=== PATIENT | male | born 1960 | race Caucasian/White ===

== ENCOUNTER 2018-07-20 10:40 | Day surgery (SDC) | payer MEDICARE ==
[~2018-07-20] VITALS: Ht 167.6 cm; Wt 94.0 kg
[2018-07-20] MEDS ORDERED: IODIXANOL 320MG/ML 100 ML BOTTLE IV ONE (13:09)
[2018-07-20] MEDS ORDERED: LIDOCAINE HCL 1% 20ML VIAL (Pyxis) INJ ONE (13:09)
[2018-07-20] MEDS ORDERED: ASPI-1159 MT (13:32)
[2018-07-20] MEDS ORDERED: LEVO100T9 MT (13:32)
[2018-07-20] MEDS ORDERED: NIFE60TA64 MT (13:32)
[2018-07-20] MEDS ORDERED: REN800 MT (13:32)
[2018-07-20] MEDS ORDERED: SIMV20TA6 MT (13:32)
[2018-07-20] MEDS ORDERED: INSNPH SUBCUT (13:32)
[2018-07-20] MEDS ORDERED: METO-539 MT (13:32)
[2018-07-20] MEDS ORDERED: ASPIRIN/SOD BICARB/CITRIC ACID 324MG TAB EFF ONE (14:00)
[2018-07-20 14:06] LABS: HEMATOCRIT 33.8 % (42.0-52.0); HEMOGLOBIN 11.1 g/dL (14.0-18.0); MEAN CORPUSCULAR HEMOGLOBIN 30.8 pg (28.0-32.0); MEAN CORPUSCULAR VOLUME 93.5 fL (80.0-94.0); PLATELET 194 x1000/uL (130-400); RED BLOOD CELL COUNT 3.62 mill/uL (4.7-6.1); RED CELL DISTRIBUTION WIDTH 14.9 % (11.6-14.6)
[2018-07-20 14:15] LABS: PARTIAL THROMBOPLASTIN TIME 27.5 sec (23.4-31.0); PROTHROMBIN TIME 10.5 sec (9.1-11.1)
[2018-07-20] MEDS ORDERED: FENTANYL CITRATE/PF 50MCG/ML 2ML VIAL ONE (14:17)
[2018-07-20] MEDS ORDERED: MIDAZOLAM HCL 2 MG/2 ML VIAL ONE (14:17)
[2018-07-20] MEDS ORDERED: ATROPINE SULFATE 1MG/10ML SYR IV PRN (15:00)
[2018-07-20] MEDS ORDERED: ONDANSETRON HCL 4MG/2ML INJ IV PRN (15:00)
[2018-07-20] MEDS ORDERED: MORPHINE SULFATE 4 MG/ML CPJ (NOT FOR IM USE) IV PRN (15:00)
[2018-07-20] MEDS ORDERED: ACETAMINOPHEN 325MG TABLET PO PRN (15:00)
[2018-07-20] MEDS ORDERED: SODIUM POLYSTYRENE SULFONATE 15 G/60 ML BOT PO NR (16:00)
[2018-07-20] MEDS ORDERED: HEPARIN SODIUM 1,000 UNIT/1ML VIAL IV ONE (16:00)
== END 2018-07-20 18:15 | disposition home or self-care (01) ==
LOC: CCL 10:40
PROVIDERS: ATTEND Specialist
DX: I25.10 Atherosclerotic heart disease of native coronary artery without angina pectoris (principal); E03.9 Hypothyroidism, unspecified; E78.00 Pure hypercholesterolemia, unspecified; E11.22 Type 2 diabetes mellitus with diabetic chronic kidney disease; N18.9 Chronic kidney disease, unspecified; Z99.2 Dependence on renal dialysis; Z79.4 Long term (current) use of insulin; Z79.899 Other long term (current) drug therapy; Z89.421 Acquired absence of other right toe(s); Z98.890 Other specified postprocedural states
CPT/HCPCS: 36415; 80048; 82962; 85027; 85610; 85730; 93458; C1769; C1887; C1893; J1644; J2250; J3010; J3490; Q9967

== ENCOUNTER 2018-09-28 08:31 | Inpatient (IN) | payer MEDICARE, MEDICAID ==
[~2018-09-28] VITALS: Ht 170.2 cm; Wt 95.7 kg
[~2018-09-28 08:31] MED LIST: ASPI-1159 MT; INSNPH SUBCUT; LEVO100T9 MT; METO-539 MT; NIFE60TA64 MT; REN800 MT; SIMV20TA6 MT
[2018-09-28 09:15] LABS: HEMOGLOBIN. 11.1 g/dL (14.0-18.0); MEAN CORPUSCULAR HEMOGLOBIN 31.1 pg (28.0-32.0); MEAN CORPUSCULAR VOLUME 95.6 fL (80.0-94.0); RED BLOOD CELL COUNT 3.56 mill/uL (4.7-6.1); RED CELL DISTRIBUTION WIDTH 15.8 % (11.6-14.6)
[2018-09-28] MEDS ORDERED: ASPIRIN 81MG TABLET PO ONE (09:15)
[2018-09-28] MEDS ORDERED: NITROGLYCERIN 0.4MG TABLET SL SL PRN (09:15)
[2018-09-28 09:22] LABS: CHLORIDE 92 mEq/L (98-107)
[2018-09-28 09:26] LABS: ETHANOL BLOOD < 10 mg/dL
[2018-09-28 09:30] LABS: INR 1.2; PROTHROMBIN TIME 12.3 sec (9.6-11.0)
[2018-09-28 09:58] LABS: PLATELET ESTIMATE NORMAL
[2018-09-28 09:59] LABS: MEAN PLATELET VOLUME 10.1 fl (7.4-10.4); PLATELET 205 x1000/uL (130-400)
[2018-09-28 12:00] VITALS: BP 173/79
[2018-09-28 12:37] VITALS: BP 173/79
[2018-09-28] MEDS ORDERED: DOCUSATE SODIUM 100MG CAPSULE PO PRN (13:15)
[2018-09-28] MEDS ORDERED: ACETAMINOPHEN 325MG TABLET PO PRN (13:15)
[2018-09-28] MEDS ORDERED: MAGNESIUM/ALUMINUM HYDROXIDE/SIMETHICONE 30ML UDC PO PRN (13:15)
[2018-09-28] MEDS ORDERED: PIPERACILLIN/TAZ 2.25G PREMIX 50 ML IV SCH (13:15)
[2018-09-28] MEDS ORDERED: DIPHENHYDRAMINE 50MG/ML VIAL IV PRN (13:15)
[2018-09-28] MEDS ORDERED: ONDANSETRON HCL 4MG/2ML INJ IV PRN (13:15)
[2018-09-28] MEDS ORDERED: GUAIFENESIN 200MG/10ML SUGAR FREE UDC PO PRN (13:15)
[2018-09-28] MEDS ORDERED: ACETAMINOPHEN 650MG SUPP PR PRN (13:15)
[2018-09-28] MEDS ORDERED: LORAZEPAM 0.5MG TABLET PO PRN (13:15)
[2018-09-28] MEDS ORDERED: IPRATROPIUM/ALBUTEROL 0.5-3(2.5)MG/3ML NEB INH PRN (13:15)
[2018-09-28] MEDS ORDERED: CLONIDINE 0.1MG TABLET PO PRN (13:15)
[2018-09-28] MEDS ORDERED: DEXTROSE 50% WATER 50ML SYRINGE IV PRN (13:15)
[2018-09-28] MEDS ORDERED: VANCOMYCIN 2,000 MG in DEXT 5% WATER 500 ML IV SCH (15:00)
[2018-09-28 15:16] LABS: CREATINE KINASE 416 IU/L (39-308)
[2018-09-28 15:17] LABS: CREATINE KINASE MB FRACTION 5.8 ng/mL (0.5-3.6)
[2018-09-28 16:00] VITALS: BP 183/89
[2018-09-28] MEDS: AMLODIPINE 5MG TABLET PO SCH (17:00)
[2018-09-28] MEDS: PIPERACILLIN/TAZ 2.25G PREMIX 50 ML IV SCH ×2 (17:14→23:46)
[2018-09-28] MEDS: BLOOD SUGAR DIAGNOSTIC STRIP TEST SCH ×2 (17:38→21:02)
[2018-09-28] MEDS: INSULIN LISPRO 100 UNITS/ML SUBCUT SCH ×2 (17:38→21:05)
[2018-09-28 20:00] VITALS: BP 161/75
[2018-09-28] MEDS: HEPARIN 5000 UNITS/ML VIAL SUBCUT SCH (21:02)
[2018-09-28] MEDS: HYDROCODONE/ACETAMINOPHEN 5/325MG TABLET PO PRN (21:03)
[2018-09-29] VITALS (9 sets, daily range): BP systolic 110–150; BP diastolic 57–80
[2018-09-29] MEDS: PIPERACILLIN/TAZ 2.25G PREMIX 50 ML IV SCH ×3 (05:29→22:04)
[2018-09-29] MEDS: BLOOD SUGAR DIAGNOSTIC STRIP TEST SCH ×4 (05:49→21:00)
[2018-09-29 06:18] LABS: BASOPHILS % 0.8 % (0.0-2.0); EOSINOPHILS % 5.4 % (0.0-5.0); HEMOGLOBIN. 10.3 g/dL (14.0-18.0); LYMPHOCYTES % 20.9 % (20.0-50.0); MEAN CORPUSCULAR HEMOGLOBIN 31.5 pg (28.0-32.0); MEAN PLATELET VOLUME 9.3 fl (7.4-10.4); MONOCYTES % 9.1 % (2.0-8.0); NEUTROPHILS % 63.8 % (40.0-76.0); PLATELET 208 x1000/uL (130-400); RED BLOOD CELL COUNT 3.26 mill/uL (4.7-6.1); RED CELL DISTRIBUTION WIDTH 15.8 % (11.6-14.6)
[2018-09-29 06:27] LABS: CHLORIDE 92 mEq/L (98-107)
[2018-09-29 06:42] LABS: LDL CHOLESTEROL 67 mg/dL (5-100)
[2018-09-29 06:44] LABS: HDL CHOLESTEROL 33 mg/dL (40-59); T4 FREE 0.92 ng/dL (0.76-1.46)
[2018-09-29 07:39] LABS: PHOSPHORUS 8.6 mg/dL (2.5-4.9)
[2018-09-29] MEDS: AMLODIPINE 5MG TABLET PO SCH (08:56)
[2018-09-29] MEDS: ASPIRIN 81MG EC TABLET PO SCH (08:58)
[2018-09-29] MEDS: HEPARIN 5000 UNITS/ML VIAL SUBCUT SCH ×2 (08:58→22:05)
[2018-09-29] MEDS: INSULIN LISPRO 100 UNITS/ML SUBCUT SCH ×4 (09:00→22:24)
[2018-09-29] MEDS: HYDROCODONE/ACETAMINOPHEN 5/325MG TABLET PO PRN (23:33)
[2018-09-30 04:00] VITALS: BP 179/84
[2018-09-30] MEDS: PIPERACILLIN/TAZ 2.25G PREMIX 50 ML IV SCH ×3 (06:00→22:31)
[2018-09-30 06:15] LABS: BASOPHILS % 0.9 % (0.0-2.0); HEMATOCRIT. 31.2 % (42.0-52.0); HEMOGLOBIN. 10.1 g/dL (14.0-18.0); LYMPHOCYTES % 23.7 % (20.0-50.0); MEAN CORPUSCULAR HEMOGLOBIN 30.9 pg (28.0-32.0); MEAN CORPUSCULAR VOLUME 95.4 fL (80.0-94.0); MEAN PLATELET VOLUME 9.3 fl (7.4-10.4); MONOCYTES % 9.4 % (2.0-8.0); PLATELET 206 x1000/uL (130-400); RED BLOOD CELL COUNT 3.27 mill/uL (4.7-6.1); RED CELL DISTRIBUTION WIDTH 15.5 % (11.6-14.6)
[2018-09-30] MEDS: BLOOD SUGAR DIAGNOSTIC STRIP TEST SCH ×4 (06:55→21:00)
[2018-09-30 08:00] VITALS: BP 185/86
[2018-09-30] MEDS: ASPIRIN 81MG EC TABLET PO SCH (08:29)
[2018-09-30] MEDS: AMLODIPINE 5MG TABLET PO SCH (08:29)
[2018-09-30] MEDS: HEPARIN 5000 UNITS/ML VIAL SUBCUT SCH ×2 (08:29→22:29)
[2018-09-30] MEDS: INSULIN LISPRO 100 UNITS/ML SUBCUT SCH ×4 (08:32→21:00)
[2018-09-30] MEDS ORDERED: LOSARTAN POTASSIUM 50 MG TABLET PO SCH (11:00)
[2018-09-30] MEDS ORDERED: CLONIDINE 0.1MG TABLET PO NR (11:00)
[2018-09-30 12:00] VITALS: BP 195/93
[2018-09-30] MEDS ORDERED: METOPROLOL TARTRATE 50MG TABLET PO NR (14:15)
[2018-09-30] MEDS ORDERED: HYDRALAZINE 20MG/ML VIAL IV NR (14:15)
[2018-09-30 16:00] VITALS: BP 151/70
[2018-09-30] MEDS ORDERED: AMLODIPINE 5MG TABLET PO SCH (17:00)
[2018-09-30] MEDS ORDERED: CLONIDINE 0.1MG TABLET PO SCH (17:00)
[2018-09-30 20:00] VITALS: BP 111/67
[2018-09-30] MEDS ORDERED: METOPROLOL TARTRATE 50MG TABLET PO SCH (21:00)
[2018-09-30 22:31] VITALS: BP 121/66
== END 2018-10-01 00:25 | disposition home or self-care (01) | DRG 73 ==
LOC: ER 08:31 → 6WST 10:36 → EDBEDREQ 10:43 → ENRESERV 11:23
PROVIDERS: ADMIT Internal Medicine; ATTEND Internal Medicine
DX: G90.8 Other disorders of autonomic nervous system (principal); N18.6 End stage renal disease; E46 Unspecified protein-calorie malnutrition; E87.1 Hypo-osmolality and hyponatremia; J98.11 Atelectasis; I12.0 Hypertensive chronic kidney disease with stage 5 chronic kidney disease or end stage renal disease; S91.301A Unspecified open wound, right foot, initial encounter; D63.8 Anemia in other chronic diseases classified elsewhere; E03.9 Hypothyroidism, unspecified; E11.43 Type 2 diabetes mellitus with diabetic autonomic (poly)neuropathy; E11.51 Type 2 diabetes mellitus with diabetic peripheral angiopathy without gangrene; E11.621 Type 2 diabetes mellitus with foot ulcer; E21.3 Hyperparathyroidism, unspecified; E78.00 Pure hypercholesterolemia, unspecified; E78.5 Hyperlipidemia, unspecified; E83.39 Other disorders of phosphorus metabolism; L97.519 Non-pressure chronic ulcer of other part of right foot with unspecified severity; E66.9 Obesity, unspecified; D72.829 Elevated white blood cell count, unspecified; E11.22 Type 2 diabetes mellitus with diabetic chronic kidney disease; I25.10 Atherosclerotic heart disease of native coronary artery without angina pectoris; S99.912A Unspecified injury of left ankle, initial encounter; Z79.4 Long term (current) use of insulin; Z83.3 Family history of diabetes mellitus; Z99.2 Dependence on renal dialysis
CPT/HCPCS: 36415; 71045; 73610; 73630; 78582; 80048; 80061; 80202; 80320; 82533; 82550; 82553; 82962; 83036; 83735; 83880; 84100; 84439; 84443; 84484; 85379; 93005; 93306; 93880; 93923; 93970; 93971; 96374; 96375; 99285; A9558; J0360; J1644; J1815; J2543; J3370; J7060; G0480

== ENCOUNTER 2019-06-15 16:37 | Emergency (ER) | payer MEDICARE, MEDICAID ==
[~2019-06-15] VITALS: Ht 167.6 cm; Wt 85.0 kg
[~2019-06-15 16:37] MED LIST changes: -ASPI-1159 MT; +ASPI-1497 MT; +CALC667T6 PO; +GABA-531 PO; +LEVO750T46 PO; +NIFE-32 MT; -NIFE60TA64 MT; +PREG75CA PO; +SIMV-43 MT; -SIMV20TA6 MT
[2019-06-15 21:00] LABS: BASOPHILS % 1.1 % (0.0-2.0); CHLORIDE 100 mEq/L (98-107); EOSINOPHILS % 6.3 % (0.0-5.0); HEMATOCRIT. 38.5 % (42.0-52.0); HEMOGLOBIN. 12.5 g/dL (14.0-18.0); LYMPHOCYTES % 25.8 % (20.0-50.0); MEAN CORPUSCULAR HEMOGLOBIN 29.5 pg (28.0-32.0); MEAN CORPUSCULAR VOLUME 91.1 fL (80.0-94.0); MEAN PLATELET VOLUME 8.9 fl (7.4-10.4); MONOCYTES % 9.7 % (2.0-8.0); NEUTROPHILS % 57.1 % (40.0-76.0); PLATELET 209 x1000/uL (130-400); RED BLOOD CELL COUNT 4.23 mill/uL (4.7-6.1); RED CELL DISTRIBUTION WIDTH 16.3 % (11.6-14.6)
[2019-06-15 21:04] LABS: PARTIAL THROMBOPLASTIN TIME 27.3 sec (23.4-31.0); PROTHROMBIN TIME 10.2 sec (9.6-11.0)
[2019-06-15 23:08] VITALS: BP 127/62
== END 2019-06-15 23:17 | disposition home or self-care (01) ==
LOC: ER 17:02 → CANBEDREQ 06-16 03:14
DX: I12.0 Hypertensive chronic kidney disease with stage 5 chronic kidney disease or end stage renal disease (principal); E11.22 Type 2 diabetes mellitus with diabetic chronic kidney disease; E87.5 Hyperkalemia; N18.6 End stage renal disease; Z99.2 Dependence on renal dialysis; Z79.4 Long term (current) use of insulin; Z79.82 Long term (current) use of aspirin; Z89.431 Acquired absence of right foot; Z89.432 Acquired absence of left foot
CPT/HCPCS: 36415; 71045; 80053; 83880; 84484; 85025; 93005; 93970; 99284

== ENCOUNTER 2019-09-22 12:33 | Inpatient (IN) | payer MEDICARE, MEDICAID ==
[~2019-09-22] VITALS: Ht 167.6 cm; Wt 89.8 kg
[2019-09-22] MEDS ORDERED: SODIUM CHLORIDE 0.9% 1,000 ML IV ONE (15:32)
[2019-09-22] MEDS ORDERED: PIPERACILLIN/TAZ 3.375G PREMIX 50 ML IV ONE (15:45)
[2019-09-22 16:16] LABS: BASOPHILS % 0.5 % (0.0-2.0); EOSINOPHILS % 1.9 % (0.0-5.0); HEMATOCRIT. 35.2 % (42.0-52.0); HEMOGLOBIN. 11.5 g/dL (14.0-18.0); LYMPHOCYTES % 8.1 % (20.0-50.0); MEAN CORPUSCULAR HEMOGLOBIN 30.7 pg (28.0-32.0); MEAN CORPUSCULAR VOLUME 93.9 fL (80.0-94.0); MEAN PLATELET VOLUME 8.9 fl (7.4-10.4); MONOCYTES % 7.6 % (2.0-8.0); NEUTROPHILS % 81.9 % (40.0-76.0); PLATELET 359 x1000/uL (130-400); RED BLOOD CELL COUNT 3.75 mill/uL (4.7-6.1); RED CELL DISTRIBUTION WIDTH 16.2 % (11.6-14.6)
[2019-09-22 16:17] LABS: INR 1.1; PROTHROMBIN TIME 11.4 sec (9.6-11.0)
[2019-09-22 16:18] LABS: CHLORIDE 90 mEq/L (98-107)
[2019-09-22] MEDS ORDERED: INSULIN REGULAR (HUMULIN R) 300UNITS/3ML SUBCUT ONE (18:30)
[2019-09-22 22:00] VITALS: BP 133/60
[2019-09-23] VITALS: BP 145/72
[2019-09-23] MEDS ORDERED: IPRATROPIUM/ALBUTEROL 0.5-3(2.5)MG/3ML NEB HHN PRN (00:15)
[2019-09-23] MEDS ORDERED: DEXTROSE 50% WATER 50ML SYRINGE IV PRN ×2 (00:15)
[2019-09-23] MEDS ORDERED: TEMAZEPAM 15MG CAPSULE PO PRN (00:15)
[2019-09-23] MEDS ORDERED: ONDANSETRON HCL 4MG/2ML INJ IV PRN (00:15)
[2019-09-23] MEDS: PIPERACILLIN/TAZOBACTAM 2.25 G in DEXTROSE 5% WATER 50 ML IV SCH ×3 (01:38→17:14)
[2019-09-23] MEDS ORDERED: VANCOMYCIN 1500MG in DEXTROSE 5% WATER 250ML IV SCH (02:00)
[2019-09-23 04:00] VITALS: BP 134/54
[2019-09-23] MEDS: BLOOD SUGAR DIAGNOSTIC STRIP TEST SCH ×4 (06:22→21:41)
[2019-09-23] MEDS: LEVOTHYROXINE SODIUM 100MCG TABLET PO SCH (06:22)
[2019-09-23 08:00] VITALS: BP 147/73
[2019-09-23] MEDS: HEPARIN 5000 UNITS/ML VIAL SUBCUT SCH ×2 (09:00→21:38)
[2019-09-23] MEDS: ASPIRIN 81MG TABLET PO SCH (09:11)
[2019-09-23] MEDS: METOPROLOL TARTRATE 50MG TABLET PO SCH ×2 (09:12→21:36)
[2019-09-23] MEDS: INSULIN LISPRO 100 UNITS/ML SUBCUT SCH ×4 (09:22→21:49)
[2019-09-23 12:54] LABS: HEMATOCRIT 33.3 % (42.0-52.0); HEMOGLOBIN 10.9 g/dL (14.0-18.0); MEAN CORPUSCULAR HEMOGLOBIN 30.6 pg (28.0-32.0); MEAN CORPUSCULAR VOLUME 93.6 fL (80.0-94.0); PLATELET 317 x1000/uL (130-400); RED BLOOD CELL COUNT 3.56 mill/uL (4.7-6.1)
[2019-09-23] MEDS ORDERED: INSULIN GLARGINE UD 100 UNITS/ML SYR SUBCUT NR (13:00)
[2019-09-23 13:14] LABS: CHLORIDE 93 mEq/L (98-107)
[2019-09-23] MEDS: HYDROCODONE/ACETAMINOPHEN 5/325MG TABLET PO PRN (13:39)
[2019-09-23 16:00] VITALS: BP 170/83
[2019-09-23] MEDS ORDERED: TETANUS, DIPHTHERIA, PERTUSSIS VAC/PF 0.5ML (>7YR OLD) IM ONE (17:00)
[2019-09-23] MEDS: FOLIC ACID/VITAMIN B COMP W-C TABLET PO SCH (17:14)
[2019-09-23 20:00] VITALS: BP 186/65
[2019-09-23] MEDS: FAMOTIDINE 20MG TABLET PO SCH (21:36)
[2019-09-24] VITALS: BP 200/85
[2019-09-24] MEDS: CLONIDINE 0.1MG TABLET PO PRN ×3 (00:12→21:12)
[2019-09-24] MEDS: HYDROCODONE/ACETAMINOPHEN 5/325MG TABLET PO PRN ×2 (00:12→21:26)
[2019-09-24] MEDS: PIPERACILLIN/TAZOBACTAM 2.25 G in DEXTROSE 5% WATER 50 ML IV SCH ×3 (00:13→17:56)
[2019-09-24 04:00] VITALS: BP 161/56
[2019-09-24] MEDS: LEVOTHYROXINE SODIUM 100MCG TABLET PO SCH (06:20)
[2019-09-24] MEDS: BLOOD SUGAR DIAGNOSTIC STRIP TEST SCH ×4 (06:20→21:16)
[2019-09-24 06:30] LABS: HEMOGLOBIN. 10.3 g/dL (14.0-18.0); MEAN CORPUSCULAR HEMOGLOBIN 30.9 pg (28.0-32.0); MEAN CORPUSCULAR VOLUME 92.8 fL (80.0-94.0); MEAN PLATELET VOLUME 8.6 fl (7.4-10.4); PLATELET 300 x1000/uL (130-400); RED BLOOD CELL COUNT 3.34 mill/uL (4.7-6.1); RED CELL DISTRIBUTION WIDTH 15.8 % (11.6-14.6)
[2019-09-24 07:18] LABS: CHLORIDE 95 mEq/L (98-107)
[2019-09-24 07:51] LABS: PHOSPHORUS 8.1 mg/dL (2.5-4.9)
[2019-09-24 08:00] VITALS: BP 165/80
[2019-09-24] MEDS: HEPARIN 5000 UNITS/ML VIAL SUBCUT SCH ×2 (09:00→21:15)
[2019-09-24] MEDS: FOLIC ACID/VITAMIN B COMP W-C TABLET PO SCH (09:03)
[2019-09-24] MEDS: METOPROLOL TARTRATE 50MG TABLET PO SCH ×2 (09:03→21:16)
[2019-09-24] MEDS: ASPIRIN 81MG TABLET PO SCH (09:03)
[2019-09-24] MEDS: INSULIN GLARGINE UD 100 UNITS/ML SYR SUBCUT SCH ×2 (09:06→21:25)
[2019-09-24] MEDS: INSULIN LISPRO 100 UNITS/ML SUBCUT SCH ×4 (09:06→21:14)
[2019-09-24] MEDS ORDERED: INSULIN GLARGINE UD 100 UNITS/ML SYR SUBCUT SCH (10:00)
[2019-09-24 12:00] VITALS: BP 188/80
[2019-09-24] MEDS: AMLODIPINE 5MG TABLET PO SCH (12:30)
[2019-09-24] MEDS: SEVELAMER CARBONATE 800 MG TABLET PO SCH ×2 (12:35→17:57)
[2019-09-24 14:20] LABS: PLATELET ESTIMATE NORMAL
[2019-09-24 16:00] VITALS: BP 165/72
[2019-09-24 20:00] VITALS: BP 183/74
[2019-09-24] MEDS: FAMOTIDINE 20MG TABLET PO SCH (21:15)
[2019-09-25] VITALS: BP 154/71
[2019-09-25] MEDS: PIPERACILLIN/TAZOBACTAM 2.25 G in DEXTROSE 5% WATER 50 ML IV SCH ×3 (00:10→16:19)
[2019-09-25] MEDS: HYDROCODONE/ACETAMINOPHEN 5/325MG TABLET PO PRN (01:47)
[2019-09-25 04:00] VITALS: BP 167/85
[2019-09-25] MEDS: BLOOD SUGAR DIAGNOSTIC STRIP TEST SCH ×4 (06:14→21:00)
[2019-09-25] MEDS: LEVOTHYROXINE SODIUM 100MCG TABLET PO SCH (06:14)
[2019-09-25] MEDS: INSULIN LISPRO 100 UNITS/ML SUBCUT SCH ×4 (07:50→22:46)
[2019-09-25 07:52] LABS: PHOSPHORUS 8.6 mg/dL (2.5-4.9)
[2019-09-25 08:00] VITALS: BP 186/79
[2019-09-25] MEDS: ASPIRIN 81MG TABLET PO SCH (08:59)
[2019-09-25] MEDS: SEVELAMER CARBONATE 800 MG TABLET PO SCH ×3 (08:59→17:19)
[2019-09-25] MEDS: FOLIC ACID/VITAMIN B COMP W-C TABLET PO SCH (08:59)
[2019-09-25] MEDS: HEPARIN 5000 UNITS/ML VIAL SUBCUT SCH ×2 (08:59→22:31)
[2019-09-25] MEDS: AMLODIPINE 5MG TABLET PO SCH (09:00)
[2019-09-25] MEDS: METOPROLOL TARTRATE 50MG TABLET PO SCH ×2 (09:00→22:30)
[2019-09-25] MEDS: INSULIN GLARGINE UD 100 UNITS/ML SYR SUBCUT SCH ×2 (09:51→22:31)
[2019-09-25 12:00] VITALS: BP 172/74
[2019-09-25 12:12] LABS: BASOPHILS % 1.1 % (0.0-2.0); EOSINOPHILS % 4.6 % (0.0-5.0); HEMATOCRIT. 34.5 % (42.0-52.0); HEMOGLOBIN. 11.4 g/dL (14.0-18.0); LYMPHOCYTES % 20.8 % (20.0-50.0); MEAN CORPUSCULAR HEMOGLOBIN 30.8 pg (28.0-32.0); MEAN CORPUSCULAR VOLUME 93.1 fL (80.0-94.0); MEAN PLATELET VOLUME 8.7 fl (7.4-10.4); MONOCYTES % 5.9 % (2.0-8.0); NEUTROPHILS % 67.6 % (40.0-76.0); PLATELET 314 x1000/uL (130-400); RED CELL DISTRIBUTION WIDTH 15.8 % (11.6-14.6)
[2019-09-25] MEDS: CLONIDINE 0.1MG TABLET PO PRN (12:33)
[2019-09-25] MEDS ORDERED: AMLODIPINE 5MG TABLET PO ONE (15:30)
[2019-09-25] MEDS ORDERED: AMLODIPINE 5MG TABLET PO NR ×2 (15:46→15:47)
[2019-09-25 15:56] VITALS: BP 163/67
[2019-09-25 20:00] VITALS: BP 175/69
[2019-09-25] MEDS: FAMOTIDINE 20MG TABLET PO SCH (22:30)
[2019-09-26] VITALS: BP 170/74
[2019-09-26] MEDS: PIPERACILLIN/TAZOBACTAM 2.25 G in DEXTROSE 5% WATER 50 ML IV SCH ×2 (02:10→08:26)
[2019-09-26 04:00] VITALS: BP 173/76
[2019-09-26] MEDS: LEVOTHYROXINE SODIUM 100MCG TABLET PO SCH (05:52)
[2019-09-26] MEDS: CLONIDINE 0.1MG TABLET PO PRN (05:53)
[2019-09-26] MEDS: BLOOD SUGAR DIAGNOSTIC STRIP TEST SCH ×4 (06:34→21:00)
[2019-09-26 06:45] LABS: BASOPHILS % 0.9 % (0.0-2.0); EOSINOPHILS % 3.9 % (0.0-5.0); HEMATOCRIT. 31.9 % (42.0-52.0); HEMOGLOBIN. 10.6 g/dL (14.0-18.0); LYMPHOCYTES % 20.3 % (20.0-50.0); MEAN CORPUSCULAR HEMOGLOBIN 30.8 pg (28.0-32.0); MEAN CORPUSCULAR VOLUME 92.6 fL (80.0-94.0); MEAN PLATELET VOLUME 8.6 fl (7.4-10.4); MONOCYTES % 5.7 % (2.0-8.0); NEUTROPHILS % 69.2 % (40.0-76.0); PLATELET 310 x1000/uL (130-400); RED BLOOD CELL COUNT 3.44 mill/uL (4.7-6.1); RED CELL DISTRIBUTION WIDTH 16.1 % (11.6-14.6)
[2019-09-26 07:25] LABS: PHOSPHORUS 9.7 mg/dL (2.5-4.9)
[2019-09-26 08:00] VITALS: BP 185/77
[2019-09-26] MEDS: SEVELAMER CARBONATE 800 MG TABLET PO SCH ×3 (08:25→18:03)
[2019-09-26] MEDS: FOLIC ACID/VITAMIN B COMP W-C TABLET PO SCH (08:25)
[2019-09-26] MEDS: ASPIRIN 81MG TABLET PO SCH (08:25)
[2019-09-26] MEDS: AMLODIPINE 10MG TABLET PO SCH (08:26)
[2019-09-26] MEDS: HEPARIN 5000 UNITS/ML VIAL SUBCUT SCH (08:26)
[2019-09-26] MEDS: METOPROLOL TARTRATE 50MG TABLET PO SCH (08:27)
[2019-09-26] MEDS: INSULIN LISPRO 100 UNITS/ML SUBCUT SCH ×3 (08:53→17:56)
[2019-09-26] MEDS ORDERED: SODIUM POLYSTYRENE SULFONATE 15 G/60 ML BOT PO SCH (09:15)
[2019-09-26] MEDS: INSULIN GLARGINE UD 100 UNITS/ML SYR SUBCUT SCH (10:33)
[2019-09-26 12:00] VITALS: BP 155/77
[2019-09-26] MEDS: HYDRALAZINE HCL 50MG TABLET PO SCH (13:12)
[2019-09-26] MEDS ORDERED: VANCOMYCIN 1,000 MG in DEXT 5% WATER 250 ML IV SCH (14:00)
[2019-09-26] MEDS ORDERED: VANCOMYCIN 1 G PREMIX 200 ML IV SCH (14:00)
[2019-09-26 16:00] VITALS: BP 143/77
[2019-09-26] MEDS ORDERED: CEFAZOLIN XX SCH (16:00)
[2019-09-26] MEDS ORDERED: [UNRECOGNIZED DRUG - OTHER] XX SCH (16:00)
[2019-09-26] MEDS ORDERED: METRONIDAZOLE XX SCH (16:00)
[2019-09-26 20:00] VITALS: BP 158/80
[2019-09-27] VITALS: BP 167/90
[2019-09-27] MEDS: FAMOTIDINE 20MG TABLET PO SCH ×2 (00:21→21:37)
[2019-09-27] MEDS: METRONIDAZOLE 250MG TABLET PO SCH ×4 (00:21→21:44)
[2019-09-27] MEDS: HYDRALAZINE HCL 50MG TABLET PO SCH ×4 (00:22→22:42)
[2019-09-27] MEDS: METOPROLOL TARTRATE 50MG TABLET PO SCH ×3 (00:23→21:37)
[2019-09-27] MEDS: HEPARIN 5000 UNITS/ML VIAL SUBCUT SCH ×3 (00:23→21:37)
[2019-09-27] MEDS: INSULIN GLARGINE UD 100 UNITS/ML SYR SUBCUT SCH ×4 (00:24→21:50)
[2019-09-27] MEDS: INSULIN LISPRO 100 UNITS/ML SUBCUT SCH ×5 (00:35→21:40)
[2019-09-27 04:00] VITALS: BP 176/73
[2019-09-27] MEDS: CLONIDINE 0.1MG TABLET PO PRN (04:34)
[2019-09-27] MEDS: LEVOTHYROXINE SODIUM 100MCG TABLET PO SCH (05:13)
[2019-09-27] MEDS: BLOOD SUGAR DIAGNOSTIC STRIP TEST SCH ×4 (06:15→21:39)
[2019-09-27 08:00] VITALS: BP 174/74
[2019-09-27] MEDS: FOLIC ACID/VITAMIN B COMP W-C TABLET PO SCH (08:30)
[2019-09-27] MEDS: ASPIRIN 81MG TABLET PO SCH (08:30)
[2019-09-27] MEDS: SEVELAMER CARBONATE 800 MG TABLET PO SCH ×3 (08:30→17:27)
[2019-09-27] MEDS: AMLODIPINE 10MG TABLET PO SCH (08:31)
[2019-09-27] MEDS ORDERED: METR250T MT (11:03)
[2019-09-27] MEDS ORDERED: REN800 PO (11:03)
[2019-09-27 17:26] LABS: EOSINOPHILS % 3.3 % (0.0-5.0); HEMATOCRIT. 34.1 % (42.0-52.0); HEMOGLOBIN. 11.3 g/dL (14.0-18.0); LYMPHOCYTES % 16.8 % (20.0-50.0); MEAN CORPUSCULAR HEMOGLOBIN 30.6 pg (28.0-32.0); MEAN PLATELET VOLUME 7.9 fl (7.4-10.4); MONOCYTES % 5.9 % (2.0-8.0); PLATELET 289 x1000/uL (130-400); RED BLOOD CELL COUNT 3.71 mill/uL (4.7-6.1)
[2019-09-27 17:32] LABS: PHOSPHORUS 7.4 mg/dL (2.5-4.9)
[2019-09-27] MEDS ORDERED: LEVO500T2 PO (17:40)
[2019-09-27 20:00] VITALS: BP 153/81
[2019-09-27] MEDS ORDERED: LEVOFLOXACIN 500MG PREMIX 100 ML IV SCH (20:00)
[2019-09-27] MEDS: CEFAZOLIN 2000MG in DEXTROSE 5% WATER 100ML IV SCH (21:38)
[2019-09-27] MEDS: HYDROCODONE/ACETAMINOPHEN 5/325MG TABLET PO PRN (22:05)
[2019-09-28] VITALS: BP 159/69
[2019-09-28 04:00] VITALS: BP 158/95
[2019-09-28] MEDS: LEVOTHYROXINE SODIUM 100MCG TABLET PO SCH (06:26)
[2019-09-28] MEDS: SEVELAMER CARBONATE 800 MG TABLET PO SCH (06:26)
[2019-09-28] MEDS: HYDRALAZINE HCL 50MG TABLET PO SCH ×3 (06:30→21:46)
[2019-09-28] MEDS: BLOOD SUGAR DIAGNOSTIC STRIP TEST SCH ×4 (06:30→21:00)
[2019-09-28] MEDS: METRONIDAZOLE 250MG TABLET PO SCH ×3 (06:30→21:44)
[2019-09-28 06:40] LABS: EOSINOPHILS % 3.1 % (0.0-5.0); HEMATOCRIT. 31.5 % (42.0-52.0); HEMOGLOBIN. 10.4 g/dL (14.0-18.0); LYMPHOCYTES % 22.8 % (20.0-50.0); MEAN CORPUSCULAR HEMOGLOBIN 30.5 pg (28.0-32.0); MEAN CORPUSCULAR VOLUME 92.4 fL (80.0-94.0); MEAN PLATELET VOLUME 8.3 fl (7.4-10.4); MONOCYTES % 6.6 % (2.0-8.0); NEUTROPHILS % 66.5 % (40.0-76.0); PLATELET 288 x1000/uL (130-400); RED BLOOD CELL COUNT 3.41 mill/uL (4.7-6.1); RED CELL DISTRIBUTION WIDTH 15.6 % (11.6-14.6)
[2019-09-28] MEDS: INSULIN LISPRO 100 UNITS/ML SUBCUT SCH ×4 (07:47→21:49)
[2019-09-28] MEDS: FOLIC ACID/VITAMIN B COMP W-C TABLET PO SCH (09:05)
[2019-09-28] MEDS: ASPIRIN 81MG TABLET PO SCH (09:05)
[2019-09-28] MEDS: METOPROLOL TARTRATE 50MG TABLET PO SCH ×2 (09:05→21:47)
[2019-09-28] MEDS: HEPARIN 5000 UNITS/ML VIAL SUBCUT SCH ×2 (09:06→21:44)
[2019-09-28] MEDS: AMLODIPINE 10MG TABLET PO SCH (09:11)
[2019-09-28] MEDS: CALCIUM ACETATE 667MG CAPSULE PO SCH ×2 (12:03→18:00)
[2019-09-28] MEDS: HYDROCODONE/ACETAMINOPHEN 5/325MG TABLET PO PRN (16:05)
[2019-09-28 20:00] VITALS: BP 176/77
[2019-09-28] MEDS: FAMOTIDINE 20MG TABLET PO SCH (21:45)
[2019-09-28] MEDS: INSULIN GLARGINE UD 100 UNITS/ML SYR SUBCUT SCH (21:48)
[2019-09-29] VITALS: BP 131/77
[2019-09-29 04:00] VITALS: BP 170/74
[2019-09-29] MEDS: METRONIDAZOLE 250MG TABLET PO SCH ×3 (06:30→23:17)
[2019-09-29] MEDS: LEVOTHYROXINE SODIUM 100MCG TABLET PO SCH (06:30)
[2019-09-29] MEDS: HYDRALAZINE HCL 50MG TABLET PO SCH ×3 (06:30→23:17)
[2019-09-29 06:35] LABS: BASOPHILS % 0.9 % (0.0-2.0); EOSINOPHILS % 3.4 % (0.0-5.0); HEMATOCRIT. 32.6 % (42.0-52.0); HEMOGLOBIN. 10.7 g/dL (14.0-18.0); LYMPHOCYTES % 17.8 % (20.0-50.0); MEAN CORPUSCULAR HEMOGLOBIN 30.6 pg (28.0-32.0); MEAN PLATELET VOLUME 8.3 fl (7.4-10.4); MONOCYTES % 7.1 % (2.0-8.0); NEUTROPHILS % 70.8 % (40.0-76.0); PLATELET 258 x1000/uL (130-400); RED BLOOD CELL COUNT 3.51 mill/uL (4.7-6.1); RED CELL DISTRIBUTION WIDTH 15.7 % (11.6-14.6)
[2019-09-29] MEDS: BLOOD SUGAR DIAGNOSTIC STRIP TEST SCH ×4 (07:20→21:47)
[2019-09-29] MEDS: INSULIN LISPRO 100 UNITS/ML SUBCUT SCH ×4 (07:50→21:54)
[2019-09-29 08:00] VITALS: BP 168/71
[2019-09-29 08:05] LABS: PHOSPHORUS 9.7 mg/dL (2.5-4.9)
[2019-09-29] MEDS: AMLODIPINE 10MG TABLET PO SCH (08:50)
[2019-09-29] MEDS: ASPIRIN 81MG TABLET PO SCH (08:50)
[2019-09-29] MEDS: METOPROLOL TARTRATE 50MG TABLET PO SCH ×2 (08:50→21:37)
[2019-09-29] MEDS: HEPARIN 5000 UNITS/ML VIAL SUBCUT SCH ×2 (08:51→21:38)
[2019-09-29] MEDS: FOLIC ACID/VITAMIN B COMP W-C TABLET PO SCH (08:51)
[2019-09-29] MEDS: INSULIN GLARGINE UD 100 UNITS/ML SYR SUBCUT SCH ×2 (10:37→23:18)
[2019-09-29 12:00] VITALS: BP 182/89
[2019-09-29] MEDS: CALCIUM ACETATE 667MG CAPSULE PO SCH ×2 (13:37→17:50)
[2019-09-29] MEDS ORDERED: CLONIDINE 0.1MG TABLET PO SCH (16:00)
[2019-09-29 20:00] VITALS: BP 175/80
[2019-09-29] MEDS: FAMOTIDINE 20MG TABLET PO SCH (21:37)
[2019-09-29] MEDS: CEFAZOLIN 2000MG in DEXTROSE 5% WATER 100ML IV SCH (21:37)
[2019-09-29] MEDS: HYDROCODONE/ACETAMINOPHEN 5/325MG TABLET PO PRN (23:42)
[2019-09-30] VITALS: BP 148/60
[2019-09-30 04:00] VITALS: BP 157/68
[2019-09-30] MEDS: METRONIDAZOLE 250MG TABLET PO SCH (05:34)
[2019-09-30] MEDS: HYDRALAZINE HCL 50MG TABLET PO SCH (05:34)
[2019-09-30] MEDS: LEVOTHYROXINE SODIUM 100MCG TABLET PO SCH (06:19)
[2019-09-30] MEDS: BLOOD SUGAR DIAGNOSTIC STRIP TEST SCH ×2 (06:21→11:52)
[2019-09-30] MEDS: INSULIN LISPRO 100 UNITS/ML SUBCUT SCH ×2 (07:50→13:05)
[2019-09-30 08:00] VITALS: BP 149/73
[2019-09-30] MEDS: CALCIUM ACETATE 667MG CAPSULE PO SCH ×2 (08:31→13:07)
[2019-09-30] MEDS: AMLODIPINE 10MG TABLET PO SCH (08:38)
[2019-09-30] MEDS: FOLIC ACID/VITAMIN B COMP W-C TABLET PO SCH (08:40)
[2019-09-30] MEDS: ASPIRIN 81MG TABLET PO SCH (08:40)
[2019-09-30] MEDS: METOPROLOL TARTRATE 50MG TABLET PO SCH (08:40)
[2019-09-30] MEDS: HYDROCODONE/ACETAMINOPHEN 5/325MG TABLET PO PRN (08:43)
[2019-09-30] MEDS: HEPARIN 5000 UNITS/ML VIAL SUBCUT SCH (08:46)
[2019-09-30] MEDS ORDERED: CALCITRIOL 0.25MCG CAPSULE PO SCH (09:00)
[2019-09-30] MEDS: INSULIN GLARGINE UD 100 UNITS/ML SYR SUBCUT SCH (10:17)
[2019-09-30 12:36] VITALS: BP 158/68
== END 2019-09-30 14:27 | disposition home or self-care (01) | DRG 299 ==
LOC: ER 12:33 → 6EST 18:23 → EDBEDREQTM 18:27 → EDBEDREQ 18:27 → EDBEDREQSVC 18:27 → ENRESERV 21:21
PROVIDERS: ADMIT Internal Medicine; ATTEND Internal Medicine
PROC: 5A1D70Z Performance of Urinary Filtration, Intermittent, Less than 6 Hours Per Day (ICD-10-PCS; principal; 2019-09-23)
PROC: 5A1D70Z Performance of Urinary Filtration, Intermittent, Less than 6 Hours Per Day (ICD-10-PCS; 2019-09-26)
PROC: 5A1D70Z Performance of Urinary Filtration, Intermittent, Less than 6 Hours Per Day (ICD-10-PCS; 2019-09-27)
PROC: 5A1D70Z Performance of Urinary Filtration, Intermittent, Less than 6 Hours Per Day (ICD-10-PCS; 2019-09-28)
DX: E11.52 Type 2 diabetes mellitus with diabetic peripheral angiopathy with gangrene (principal); N18.6 End stage renal disease; M86.172 Other acute osteomyelitis, left ankle and foot; I12.0 Hypertensive chronic kidney disease with stage 5 chronic kidney disease or end stage renal disease; E11.69 Type 2 diabetes mellitus with other specified complication; E11.42 Type 2 diabetes mellitus with diabetic polyneuropathy; E11.65 Type 2 diabetes mellitus with hyperglycemia; E78.5 Hyperlipidemia, unspecified; E11.610 Type 2 diabetes mellitus with diabetic neuropathic arthropathy; D63.1 Anemia in chronic kidney disease; L97.529 Non-pressure chronic ulcer of other part of left foot with unspecified severity; E87.5 Hyperkalemia; E11.621 Type 2 diabetes mellitus with foot ulcer; B95.62 Methicillin resistant Staphylococcus aureus infection as the cause of diseases classified elsewhere; E66.9 Obesity, unspecified; I25.10 Atherosclerotic heart disease of native coronary artery without angina pectoris; E03.9 Hypothyroidism, unspecified; E11.22 Type 2 diabetes mellitus with diabetic chronic kidney disease; S93.335A Other dislocation of left foot, initial encounter; X58.XXXA Exposure to other specified factors, initial encounter; Y93.89 Activity, other specified; Y92.89 Other specified places as the place of occurrence of the external cause; Y99.8 Other external cause status; E11.319 Type 2 diabetes mellitus with unspecified diabetic retinopathy without macular edema; Z99.2 Dependence on renal dialysis; Z68.32 Body mass index [BMI] 32.0-32.9, adult; Z79.4 Long term (current) use of insulin; Z79.82 Long term (current) use of aspirin; Z79.899 Other long term (current) drug therapy; Z83.3 Family history of diabetes mellitus; Z86.14 Personal history of Methicillin resistant Staphylococcus aureus infection; Z87.891 Personal history of nicotine dependence; Z91.013 Allergy to seafood; Z20.828 Contact with and (suspected) exposure to other viral communicable diseases
CPT/HCPCS: 36415; 71045; 73630; 73721; 80048; 80053; 80202; 82652; 82962; 83036; 83735; 84100; 84145; 85025; 85027; 85651; 86141; 87635; 90715; 93005; 97022; 97161; 99285; J0690; J1644; J1815; J1956; J2543; J3370; J7030; J7060; U0003-CS

== ENCOUNTER 2020-06-26 09:37 | Inpatient (IN) | payer MEDICARE, MEDICAID ==
[~2020-06-26] VITALS: Ht 167.6 cm; Wt 113.4 kg
[~2020-06-26 09:37] MED LIST changes: -GABA-531 PO; +GABA-532 PO; +LEVO500T2 PO; -LEVO750T46 PO; +METR250T MT; -REN800 MT; +REN800 PO
[2020-06-26] MEDS ORDERED: DEXTROSE 50% WATER 50ML SYRINGE IV ONE ×2 (10:15→10:45)
[2020-06-26 10:38] LABS: BASOPHILS % 0.4 % (0.0-2.0); EOSINOPHILS % 1.3 % (0.0-5.0); HEMATOCRIT. 29.1 % (42.0-52.0); HEMOGLOBIN. 9.9 g/dL (14.0-18.0); LYMPHOCYTES % 7.1 % (20.0-50.0); MEAN CORPUSCULAR VOLUME 91.5 fL (80.0-94.0); MEAN PLATELET VOLUME 9.5 fl (7.4-10.4); MONOCYTES % 4.5 % (2.0-8.0); NEUTROPHILS % 86.7 % (40.0-76.0); PLATELET 159 x1000/uL (130-400); RED BLOOD CELL COUNT 3.18 mill/uL (4.7-6.1); RED CELL DISTRIBUTION WIDTH 14.1 % (11.6-14.6)
[2020-06-26 10:44] LABS: CHLORIDE 99 mEq/L (98-107)
[2020-06-26 10:50] LABS: ETHANOL BLOOD < 10 mg/dL
[2020-06-26] MEDS ORDERED: DIPHENHYDRAMINE 50MG/ML VIAL IV PRN (23:00)
[2020-06-26] MEDS ORDERED: LORAZEPAM 2MG/ML CPJ IV PRN (23:00)
[2020-06-26] MEDS ORDERED: MAGNESIUM/ALUMINUM HYDROXIDE/SIMETHICONE 30ML UDC PO PRN (23:00)
[2020-06-26] MEDS ORDERED: ACETAMINOPHEN 325MG TABLET PO PRN (23:00)
[2020-06-26] MEDS ORDERED: NA PHOS,M-B/NA PHOS,DI-BA ENEMA 118ML PR PRN (23:00)
[2020-06-26] MEDS ORDERED: ONDANSETRON HCL 4MG/2ML INJ IV PRN (23:00)
[2020-06-26] MEDS ORDERED: DOCUSATE SODIUM 100MG CAPSULE PO PRN (23:00)
[2020-06-26] MEDS ORDERED: HYDROCODONE/ACETAMINOPHEN 5/325MG TABLET PO PRN (23:00)
[2020-06-26] MEDS ORDERED: MORPHINE SULFATE 2 MG/ML CPJ (NOT FOR IM USE) IV PRN (23:00)
[2020-06-26] MEDS ORDERED: IPRATROPIUM/ALBUTEROL 0.5-3(2.5)MG/3ML NEB NEB PRN (23:00)
[2020-06-26] MEDS ORDERED: GUAIFENESIN 200MG/10ML SUGAR FREE UDC PO PRN (23:00)
[2020-06-26] MEDS ORDERED: DEXTROSE 5% WATER 1,000 ML IV SCH ×2 (23:00→23:15)
[2020-06-26] MEDS ORDERED: DEXTROSE 50% WATER 50ML SYRINGE IV PRN (23:00)
[2020-06-27] MEDS: HYDRALAZINE 20MG/ML VIAL IV PRN ×3 (00:37→12:48)
[2020-06-27] MEDS: CLONIDINE 0.1MG TABLET PO PRN ×2 (04:15→12:48)
[2020-06-27 04:36] LABS: BASOPHILS % 0.5 % (0.0-2.0); EOSINOPHILS % 3.4 % (0.0-5.0); HEMATOCRIT. 27.9 % (42.0-52.0); HEMOGLOBIN. 9.4 g/dL (14.0-18.0); LYMPHOCYTES % 13.6 % (20.0-50.0); MEAN CORPUSCULAR HEMOGLOBIN 30.8 pg (28.0-32.0); MEAN CORPUSCULAR VOLUME 91.6 fL (80.0-94.0); MEAN PLATELET VOLUME 9.8 fl (7.4-10.4); MONOCYTES % 6.5 % (2.0-8.0); PLATELET 135 x1000/uL (130-400); RED BLOOD CELL COUNT 3.04 mill/uL (4.7-6.1); RED CELL DISTRIBUTION WIDTH 13.8 % (11.6-14.6)
[2020-06-27 04:42] LABS: CHLORIDE 99 mEq/L (98-107)
[2020-06-27 04:51] LABS: HDL CHOLESTEROL 34 mg/dL (40-59); LDL CHOLESTEROL 49 mg/dL (5-100)
[2020-06-27 04:52] LABS: CREATINE KINASE 102 IU/L (39-308); CREATINE KINASE MB FRACTION 1.2 ng/mL (0.5-3.6); T4 FREE 1.11 ng/dL (0.76-1.46)
[2020-06-27] MEDS: BLOOD SUGAR DIAGNOSTIC STRIP TEST SCH ×4 (06:33→21:00)
[2020-06-27] MEDS: SODIUM CHLORIDE 0.9% INJ 3ML FLUSH IVF SCH ×3 (06:50→20:45)
[2020-06-27] MEDS: GABAPENTIN 300MG CAPSULE PO SCH (09:53)
[2020-06-27] MEDS: NIFEDIPINE XL 60MG TAB PO SCH (09:53)
[2020-06-27] MEDS: ASPIRIN 81MG EC TABLET PO SCH (09:53)
[2020-06-27] MEDS: ENOXAPARIN 30MG/0.3ML SYR SUBCUT SCH (09:54)
[2020-06-27 10:02] LABS: T4 FREE 1.23 ng/dL (0.76-1.46)
[2020-06-27 15:59] LABS: CREATINE KINASE 87 IU/L (39-308); CREATINE KINASE MB FRACTION 1.1 ng/mL (0.5-3.6)
[2020-06-27 17:05] VITALS: BP 159/86
[2020-06-27 20:00] VITALS: BP 150/91
[2020-06-28] VITALS: BP 145/68
[2020-06-28 04:00] VITALS: BP 155/71
[2020-06-28] MEDS: SODIUM CHLORIDE 0.9% INJ 3ML FLUSH IVF SCH ×3 (06:14→21:41)
[2020-06-28 06:36] LABS: BASOPHILS % 0.5 % (0.0-2.0); EOSINOPHILS % 4.2 % (0.0-5.0); HEMATOCRIT. 25.6 % (42.0-52.0); HEMOGLOBIN. 8.7 g/dL (14.0-18.0); LYMPHOCYTES % 14.4 % (20.0-50.0); MEAN CORPUSCULAR HEMOGLOBIN 31.2 pg (28.0-32.0); MEAN CORPUSCULAR VOLUME 91.6 fL (80.0-94.0); MEAN PLATELET VOLUME 10.2 fl (7.4-10.4); MONOCYTES % 6.1 % (2.0-8.0); NEUTROPHILS % 74.8 % (40.0-76.0); PLATELET 135 x1000/uL (130-400); RED CELL DISTRIBUTION WIDTH 13.8 % (11.6-14.6)
[2020-06-28] MEDS: BLOOD SUGAR DIAGNOSTIC STRIP TEST SCH ×4 (07:20→21:41)
[2020-06-28 07:31] LABS: CHLORIDE 97 mEq/L (98-107)
[2020-06-28 08:00] VITALS: BP 170/74
[2020-06-28] MEDS: ENOXAPARIN 30MG/0.3ML SYR SUBCUT SCH (08:58)
[2020-06-28] MEDS: ASPIRIN 81MG EC TABLET PO SCH (08:59)
[2020-06-28] MEDS: NIFEDIPINE XL 60MG TAB PO SCH (08:59)
[2020-06-28] MEDS: GABAPENTIN 300MG CAPSULE PO SCH (08:59)
[2020-06-28 12:00] VITALS: BP 158/68
[2020-06-28 16:00] VITALS: BP 135/68
[2020-06-28 18:25] LABS: PHOSPHORUS 6.1 mg/dL (2.5-4.9)
[2020-06-28 20:00] VITALS: BP 168/72
[2020-06-28] MEDS: CLONIDINE 0.1MG TABLET PO PRN (21:41)
[2020-06-29] VITALS: BP 164/78
[2020-06-29 04:00] VITALS: BP 157/71
[2020-06-29] MEDS: SODIUM CHLORIDE 0.9% INJ 3ML FLUSH IVF SCH (06:03)
[2020-06-29] MEDS: BLOOD SUGAR DIAGNOSTIC STRIP TEST SCH ×2 (06:04→12:20)
[2020-06-29 06:56] LABS: BASOPHILS % 0.8 % (0.0-2.0); HEMATOCRIT. 26.6 % (42.0-52.0); LYMPHOCYTES % 19.7 % (20.0-50.0); MEAN CORPUSCULAR HEMOGLOBIN 31.6 pg (28.0-32.0); MEAN CORPUSCULAR VOLUME 92.8 fL (80.0-94.0); MEAN PLATELET VOLUME 10.2 fl (7.4-10.4); MONOCYTES % 7.9 % (2.0-8.0); NEUTROPHILS % 65.6 % (40.0-76.0); PLATELET 146 x1000/uL (130-400); RED BLOOD CELL COUNT 2.86 mill/uL (4.7-6.1); RED CELL DISTRIBUTION WIDTH 13.9 % (11.6-14.6)
[2020-06-29 07:50] LABS: PHOSPHORUS 5.9 mg/dL (2.5-4.9)
[2020-06-29 08:00] VITALS: BP 171/75
[2020-06-29] MEDS ORDERED: ENOXAPARIN 40MG/0.4ML SYR SUBCUT SCH (09:00)
[2020-06-29] MEDS: ASPIRIN 81MG EC TABLET PO SCH (09:54)
[2020-06-29] MEDS: GABAPENTIN 300MG CAPSULE PO SCH (09:54)
[2020-06-29] MEDS: NIFEDIPINE XL 60MG TAB PO SCH (09:54)
[2020-06-29 12:00] VITALS: BP 185/86
[2020-06-29] MEDS: CLONIDINE 0.1MG TABLET PO PRN (13:10)
[2020-06-29 13:54] VITALS: BP 185/86
== END 2020-06-29 16:40 | disposition home or self-care (01) | DRG 73 ==
LOC: ER 10:22 → EDBEDREQ 17:42 → MICUSO 20:51 → 7WST 06-27 16:10 → 6WST 06-28 02:57
PROVIDERS: ADMIT Internal Medicine; ATTEND Internal Medicine
PROC: 5A1D70Z Performance of Urinary Filtration, Intermittent, Less than 6 Hours Per Day (ICD-10-PCS; principal; 2020-06-27)
DX: G90.8 Other disorders of autonomic nervous system (principal); G93.41 Metabolic encephalopathy; N18.6 End stage renal disease; I12.0 Hypertensive chronic kidney disease with stage 5 chronic kidney disease or end stage renal disease; E46 Unspecified protein-calorie malnutrition; J84.9 Interstitial pulmonary disease, unspecified; M86.8X6 Other osteomyelitis, lower leg; Z68.41 Body mass index [BMI] 40.0-44.9, adult; E11.649 Type 2 diabetes mellitus with hypoglycemia without coma; D63.1 Anemia in chronic kidney disease; E03.9 Hypothyroidism, unspecified; E11.22 Type 2 diabetes mellitus with diabetic chronic kidney disease; E11.42 Type 2 diabetes mellitus with diabetic polyneuropathy; E78.5 Hyperlipidemia, unspecified; I25.10 Atherosclerotic heart disease of native coronary artery without angina pectoris; E11.65 Type 2 diabetes mellitus with hyperglycemia; Z20.822 Contact with and (suspected) exposure to COVID-19; E11.51 Type 2 diabetes mellitus with diabetic peripheral angiopathy without gangrene; E11.621 Type 2 diabetes mellitus with foot ulcer; E11.69 Type 2 diabetes mellitus with other specified complication; K59.00 Constipation, unspecified; F41.9 Anxiety disorder, unspecified; L97.519 Non-pressure chronic ulcer of other part of right foot with unspecified severity; L97.529 Non-pressure chronic ulcer of other part of left foot with unspecified severity; Z79.82 Long term (current) use of aspirin; Z99.2 Dependence on renal dialysis; Z79.899 Other long term (current) drug therapy; Z91.013 Allergy to seafood; S92.902A Unspecified fracture of left foot, initial encounter for closed fracture; Z89.431 Acquired absence of right foot
CPT/HCPCS: 36415; 71045; 73590; 73630; 80048; 80053; 80061; 80320; 82550; 82553; 82962; 83036; 83605; 83735; 83880; 84100; 84439; 84443; 84484; 85025; 85379; 86850; 86900; 93005; 93306; 93970; 99291; J0360; J1200; J1650; J2270; J7070; U0003; G0480

== ENCOUNTER 2020-11-08 15:43 | Inpatient (IN) | payer MEDICARE, MEDICAID ==
[~2020-11-08] VITALS: Ht 165.1 cm; Wt 85.7 kg
[~2020-11-08 15:43] MED LIST changes: -LEVO500T2 PO; -METR250T MT
[2020-11-08] MEDS ORDERED: ACETAMINOPHEN 325MG TABLET PO STA (16:24)
[2020-11-08] MEDS ORDERED: CEFTRIAXONE 1 G PREMIX 50 ML IV ONE (16:30)
[2020-11-08] MEDS ORDERED: SODIUM CHLORIDE 0.9% 1,000 ML IV ONE (16:30)
[2020-11-08 16:42] LABS: BASOPHILS % 1.2 % (0.0-2.0); EOSINOPHILS % 3.9 % (0.0-5.0); HEMATOCRIT. 34.2 % (42.0-52.0); HEMOGLOBIN. 11.5 g/dL (14.0-18.0); LYMPHOCYTES % 14.6 % (20.0-50.0); MEAN CORPUSCULAR HEMOGLOBIN 28.8 pg (28.0-32.0); MEAN CORPUSCULAR VOLUME 85.3 fL (80.0-94.0); MEAN PLATELET VOLUME 10.1 fl (7.4-10.4); NEUTROPHILS % 71.3 % (40.0-76.0); PLATELET 150 x1000/uL (130-400); RED CELL DISTRIBUTION WIDTH 17.6 % (11.6-14.6)
[2020-11-08 16:48] LABS: CHLORIDE 94 mEq/L (98-107)
[2020-11-08 16:51] LABS: INR 1.1; PROTHROMBIN TIME 11.9 sec (9.6-11.0)
[2020-11-09] VITALS (7 sets, daily range): BP systolic 156–197; BP diastolic 58–81
[2020-11-09] MEDS ORDERED: DEXTROSE 50% WATER 50ML SYRINGE IV PRN (01:00)
[2020-11-09] MEDS ORDERED: VANCOMYCIN 1500MG in DEXTROSE 5% WATER 250ML IV NR (03:00)
[2020-11-09] MEDS: HYDROCODONE/ACETAMINOPHEN 5/325MG TABLET PO PRN ×2 (04:40→12:52)
[2020-11-09] MEDS: LEVOTHYROXINE SODIUM 100MCG TABLET PO SCH (06:21)
[2020-11-09] MEDS: BLOOD SUGAR DIAGNOSTIC STRIP TEST SCH ×4 (06:35→21:00)
[2020-11-09] MEDS ORDERED: BLOOD SUGAR DIAGNOSTIC STRIP TEST SCH (06:45)
[2020-11-09] MEDS: INSULIN LISPRO 100 UNITS/ML SUBCUT SCH ×4 (06:47→21:00)
[2020-11-09 07:10] LABS: BASOPHILS % 0.7 % (0.0-2.0); EOSINOPHILS % 3.9 % (0.0-5.0); HEMATOCRIT. 33.3 % (42.0-52.0); HEMOGLOBIN. 11.2 g/dL (14.0-18.0); LYMPHOCYTES % 19.3 % (20.0-50.0); MEAN CORPUSCULAR HEMOGLOBIN 28.8 pg (28.0-32.0); MEAN CORPUSCULAR VOLUME 86.1 fL (80.0-94.0); MEAN PLATELET VOLUME 10.6 fl (7.4-10.4); MONOCYTES % 10.2 % (2.0-8.0); NEUTROPHILS % 65.9 % (40.0-76.0); PLATELET 131 x1000/uL (130-400); RED BLOOD CELL COUNT 3.87 mill/uL (4.7-6.1); RED CELL DISTRIBUTION WIDTH 17.6 % (11.6-14.6)
[2020-11-09] MEDS ORDERED: SEVELAMER CARBONATE 800 MG TABLET PO SCH (07:15)
[2020-11-09 07:21] LABS: PHOSPHORUS 7.4 mg/dL (2.5-4.9)
[2020-11-09] MEDS: METOPROLOL TARTRATE 50MG TABLET PO SCH ×2 (08:34→23:49)
[2020-11-09] MEDS: ASPIRIN 81MG EC TABLET PO SCH (08:34)
[2020-11-09] MEDS ORDERED: NIFEDIPINE XL 60MG TAB PO SCH (09:00)
[2020-11-09] MEDS ORDERED: CEFTRIAXONE 1 G PREMIX 50 ML IV SCH (09:00)
[2020-11-09] MEDS ORDERED: GABAPENTIN 300MG CAPSULE PO SCH (09:00)
[2020-11-09] MEDS ORDERED: CALCIUM ACETATE 667MG CAPSULE PO SCH (09:00)
[2020-11-09] MEDS ORDERED: HEPARIN SODIUM 1,000 UNIT/1ML VIAL IV SCH (10:45)
[2020-11-09] MEDS: CEFTRIAXONE 1,000 MG in DEXTROSE 5% WATER 50 ML IV SCH (12:49)
[2020-11-09] MEDS: CALCIUM ACETATE 667MG CAPSULE PO SCH ×2 (12:49→17:42)
[2020-11-09] MEDS: HYDRALAZINE 20MG/ML VIAL IV PRN (13:42)
[2020-11-09] MEDS ORDERED: ONDANSETRON HCL 4MG/2ML INJ IV PRN (13:45)
[2020-11-09] MEDS ORDERED: IPRATROPIUM/ALBUTEROL 0.5-3(2.5)MG/3ML NEB HHN PRN (13:45)
[2020-11-09] MEDS ORDERED: ACETAMINOPHEN 650MG SUPP PR PRN (13:45)
[2020-11-09] MEDS ORDERED: BISACODYL 10MG SUPP PR PRN (15:30)
[2020-11-09 16:45] LABS: HEPATITIS B SURFACE ANTIGEN NEGATIVE
[2020-11-09 17:15] LABS: HEPATITIS A AB IGM NEGATIVE (NEGATIVE)
[2020-11-09] MEDS: NIFEDIPINE XL 60MG TAB PO SCH (17:42)
[2020-11-09] MEDS ORDERED: ATORVASTATIN CALCIUM 20MG TABLET PO SCH (21:00)
[2020-11-09] MEDS: ATORVASTATIN CALCIUM 10MG TABLET PO SCH (23:48)
[2020-11-09] MEDS: FAMOTIDINE 20MG TABLET PO SCH (23:49)
[2020-11-09] MEDS: GABAPENTIN 300MG CAPSULE PO SCH (23:50)
[2020-11-09] MEDS: HEPARIN 5000 UNITS/ML VIAL SUBCUT SCH (23:51)
[2020-11-10] VITALS: BP 159/74
[2020-11-10] MEDS: HYDROCODONE/ACETAMINOPHEN 5/325MG TABLET PO PRN ×2 (00:08→14:47)
[2020-11-10 04:00] VITALS: BP 169/74
[2020-11-10] MEDS: HYDRALAZINE 20MG/ML VIAL IV PRN (04:32)
[2020-11-10] MEDS: ACETAMINOPHEN 325MG TABLET PO PRN (04:38)
[2020-11-10] MEDS: BLOOD SUGAR DIAGNOSTIC STRIP TEST SCH ×4 (06:05→20:13)
[2020-11-10] MEDS: LEVOTHYROXINE SODIUM 100MCG TABLET PO SCH (06:05)
[2020-11-10] MEDS: NIFEDIPINE XL 60MG TAB PO SCH ×2 (06:05→17:38)
[2020-11-10] MEDS: INSULIN LISPRO 100 UNITS/ML SUBCUT SCH ×4 (06:06→20:30)
[2020-11-10] MEDS: CALCIUM ACETATE 667MG CAPSULE PO SCH ×3 (06:43→17:47)
[2020-11-10 08:00] VITALS: BP 135/74
[2020-11-10 08:37] LABS: BASOPHILS % 1.1 % (0.0-2.0); EOSINOPHILS % 3.7 % (0.0-5.0); HEMATOCRIT. 32.3 % (42.0-52.0); LYMPHOCYTES % 18.9 % (20.0-50.0); MEAN CORPUSCULAR HEMOGLOBIN 29.2 pg (28.0-32.0); MEAN CORPUSCULAR VOLUME 85.8 fL (80.0-94.0); MEAN PLATELET VOLUME 9.9 fl (7.4-10.4); MONOCYTES % 9.4 % (2.0-8.0); NEUTROPHILS % 66.9 % (40.0-76.0); PLATELET 157 x1000/uL (130-400); RED BLOOD CELL COUNT 3.76 mill/uL (4.7-6.1); RED CELL DISTRIBUTION WIDTH 17.8 % (11.6-14.6)
[2020-11-10] MEDS: METOPROLOL TARTRATE 50MG TABLET PO SCH (09:23)
[2020-11-10] MEDS: HEPARIN 5000 UNITS/ML VIAL SUBCUT SCH ×2 (09:23→20:13)
[2020-11-10] MEDS: ASPIRIN 81MG EC TABLET PO SCH (09:24)
[2020-11-10] MEDS: FOLIC ACID/VITAMIN B COMP W-C TABLET PO SCH (09:24)
[2020-11-10 12:00] VITALS: BP 139/67
[2020-11-10] MEDS ORDERED: VANCOMYCIN 500 MG PREMIX 100 ML IV SCH (13:00)
[2020-11-10] MEDS ORDERED: VANCOMYCIN 750 MG PREMIX 150 ML IV SCH (14:00)
[2020-11-10] MEDS: CEFTRIAXONE 1,000 MG in DEXTROSE 5% WATER 50 ML IV SCH (14:39)
[2020-11-10 16:00] VITALS: BP 123/51
[2020-11-10] MEDS: GABAPENTIN 300MG CAPSULE PO SCH (20:13)
[2020-11-10] MEDS: ATORVASTATIN CALCIUM 10MG TABLET PO SCH (20:13)
[2020-11-10] MEDS: FAMOTIDINE 20MG TABLET PO SCH (20:13)
[2020-11-10 21:22] VITALS: BP 130/59
[2020-11-11] VITALS: BP 157/71
[2020-11-11] MEDS: METOPROLOL TARTRATE 50MG TABLET PO SCH ×3 (03:11→20:40)
[2020-11-11 05:21] VITALS: BP 184/72
[2020-11-11] MEDS: ACETAMINOPHEN 325MG TABLET PO PRN (05:38)
[2020-11-11] MEDS: BLOOD SUGAR DIAGNOSTIC STRIP TEST SCH ×4 (05:38→20:38)
[2020-11-11] MEDS: LEVOTHYROXINE SODIUM 100MCG TABLET PO SCH (05:38)
[2020-11-11] MEDS: HYDRALAZINE 20MG/ML VIAL IV PRN ×2 (05:38→11:56)
[2020-11-11] MEDS: NIFEDIPINE XL 60MG TAB PO SCH ×2 (05:38→17:09)
[2020-11-11] MEDS: CALCIUM ACETATE 667MG CAPSULE PO SCH ×3 (05:38→17:08)
[2020-11-11] MEDS: INSULIN LISPRO 100 UNITS/ML SUBCUT SCH ×4 (05:45→20:40)
[2020-11-11 08:00] VITALS: BP 183/74
[2020-11-11] MEDS: HEPARIN 5000 UNITS/ML VIAL SUBCUT SCH ×2 (09:11→20:38)
[2020-11-11] MEDS: FOLIC ACID/VITAMIN B COMP W-C TABLET PO SCH (09:11)
[2020-11-11] MEDS: ASPIRIN 81MG EC TABLET PO SCH (09:11)
[2020-11-11 09:48] LABS: BASOPHILS % 1.2 % (0.0-2.0); HEMATOCRIT. 33.7 % (42.0-52.0); HEMOGLOBIN. 11.3 g/dL (14.0-18.0); LYMPHOCYTES % 17.3 % (20.0-50.0); MEAN CORPUSCULAR HEMOGLOBIN 28.8 pg (28.0-32.0); MEAN CORPUSCULAR VOLUME 86.2 fL (80.0-94.0); MEAN PLATELET VOLUME 9.8 fl (7.4-10.4); MONOCYTES % 7.5 % (2.0-8.0); PLATELET 172 x1000/uL (130-400); RED BLOOD CELL COUNT 3.92 mill/uL (4.7-6.1); RED CELL DISTRIBUTION WIDTH 17.8 % (11.6-14.6)
[2020-11-11 10:08] LABS: PHOSPHORUS 5.1 mg/dL (2.5-4.9)
[2020-11-11 12:00] VITALS: BP 195/89
[2020-11-11] MEDS: LOSARTAN POTASSIUM 25 MG TABLET PO SCH (13:06)
[2020-11-11] MEDS: CEFTRIAXONE 1,000 MG in DEXTROSE 5% WATER 50 ML IV SCH (13:11)
[2020-11-11 16:00] VITALS: BP 128/52
[2020-11-11] MEDS: CLONIDINE 0.1MG TABLET PO SCH (17:09)
[2020-11-11] MEDS: HYDROCODONE/ACETAMINOPHEN 5/325MG TABLET PO PRN (17:52)
[2020-11-11 20:00] VITALS: BP 149/63
[2020-11-11] MEDS: FAMOTIDINE 20MG TABLET PO SCH (20:38)
[2020-11-11] MEDS: GABAPENTIN 300MG CAPSULE PO SCH (20:38)
[2020-11-11] MEDS: ATORVASTATIN CALCIUM 10MG TABLET PO SCH (20:38)
[2020-11-12] VITALS: BP 145/58
[2020-11-12] MEDS: CLONIDINE 0.1MG TABLET PO SCH ×4 (00:51→17:40)
[2020-11-12] MEDS: HYDROCODONE/ACETAMINOPHEN 5/325MG TABLET PO PRN ×3 (01:03→21:27)
[2020-11-12 04:00] VITALS: BP 151/62
[2020-11-12] MEDS: NIFEDIPINE XL 60MG TAB PO SCH ×2 (06:43→17:39)
[2020-11-12] MEDS: CALCIUM ACETATE 667MG CAPSULE PO SCH ×3 (06:43→17:40)
[2020-11-12] MEDS: BLOOD SUGAR DIAGNOSTIC STRIP TEST SCH ×4 (06:44→21:26)
[2020-11-12] MEDS: LEVOTHYROXINE SODIUM 100MCG TABLET PO SCH (06:44)
[2020-11-12] MEDS: INSULIN LISPRO 100 UNITS/ML SUBCUT SCH ×4 (06:45→21:26)
[2020-11-12 08:00] VITALS: BP 125/54
[2020-11-12] MEDS: LOSARTAN POTASSIUM 25 MG TABLET PO SCH (09:45)
[2020-11-12] MEDS: ASPIRIN 81MG EC TABLET PO SCH (09:45)
[2020-11-12] MEDS: FOLIC ACID/VITAMIN B COMP W-C TABLET PO SCH (09:45)
[2020-11-12] MEDS: HEPARIN 5000 UNITS/ML VIAL SUBCUT SCH ×2 (09:46→21:25)
[2020-11-12] MEDS: METOPROLOL TARTRATE 50MG TABLET PO SCH ×2 (09:46→21:24)
[2020-11-12 10:18] LABS: BASOPHILS % 1.1 % (0.0-2.0); EOSINOPHILS % 5.5 % (0.0-5.0); HEMATOCRIT. 31.7 % (42.0-52.0); HEMOGLOBIN. 10.7 g/dL (14.0-18.0); LYMPHOCYTES % 23.9 % (20.0-50.0); MEAN CORPUSCULAR VOLUME 86.4 fL (80.0-94.0); MONOCYTES % 9.3 % (2.0-8.0); NEUTROPHILS % 60.2 % (40.0-76.0); PLATELET 155 x1000/uL (130-400); RED BLOOD CELL COUNT 3.67 mill/uL (4.7-6.1); RED CELL DISTRIBUTION WIDTH 17.8 % (11.6-14.6)
[2020-11-12 11:58] LABS: PHOSPHORUS 7.3 mg/dL (2.5-4.9)
[2020-11-12 12:00] VITALS: BP 125/57
[2020-11-12] MEDS: CEFTRIAXONE 1,000 MG in DEXTROSE 5% WATER 50 ML IV SCH ×2 (14:48→15:01)
[2020-11-12 16:00] VITALS: BP 130/58
[2020-11-12] MEDS: GABAPENTIN 300MG CAPSULE PO SCH (21:24)
[2020-11-12] MEDS: FAMOTIDINE 20MG TABLET PO SCH (21:25)
[2020-11-12] MEDS: ATORVASTATIN CALCIUM 10MG TABLET PO SCH (21:25)
[2020-11-13] VITALS: BP 150/51
[2020-11-13] MEDS: CLONIDINE 0.1MG TABLET PO SCH ×4 (00:57→18:15)
[2020-11-13 04:00] VITALS: BP 168/58
[2020-11-13] MEDS: CALCIUM ACETATE 667MG CAPSULE PO SCH ×3 (06:16→18:15)
[2020-11-13] MEDS: INSULIN LISPRO 100 UNITS/ML SUBCUT SCH ×4 (06:17→21:35)
[2020-11-13] MEDS: BLOOD SUGAR DIAGNOSTIC STRIP TEST SCH ×4 (06:17→21:36)
[2020-11-13] MEDS: NIFEDIPINE XL 60MG TAB PO SCH ×2 (06:17→18:15)
[2020-11-13] MEDS: LEVOTHYROXINE SODIUM 100MCG TABLET PO SCH (06:17)
[2020-11-13 07:05] LABS: BASOPHILS % 1.3 % (0.0-2.0); EOSINOPHILS % 4.9 % (0.0-5.0); HEMATOCRIT. 32.7 % (42.0-52.0); HEMOGLOBIN. 10.8 g/dL (14.0-18.0); LYMPHOCYTES % 23.8 % (20.0-50.0); MEAN CORPUSCULAR HEMOGLOBIN 28.6 pg (28.0-32.0); MEAN CORPUSCULAR VOLUME 86.8 fL (80.0-94.0); MEAN PLATELET VOLUME 10.3 fl (7.4-10.4); MONOCYTES % 7.4 % (2.0-8.0); NEUTROPHILS % 62.6 % (40.0-76.0); PLATELET 144 x1000/uL (130-400); RED BLOOD CELL COUNT 3.77 mill/uL (4.7-6.1); RED CELL DISTRIBUTION WIDTH 17.9 % (11.6-14.6)
[2020-11-13 07:43] LABS: PHOSPHORUS 8.7 mg/dL (2.5-4.9)
[2020-11-13 08:00] VITALS: BP 105/51
[2020-11-13] MEDS: HEPARIN 5000 UNITS/ML VIAL SUBCUT SCH ×2 (09:00→21:31)
[2020-11-13] MEDS: FOLIC ACID/VITAMIN B COMP W-C TABLET PO SCH (09:00)
[2020-11-13] MEDS: LOSARTAN POTASSIUM 25 MG TABLET PO SCH (09:00)
[2020-11-13] MEDS: METOPROLOL TARTRATE 50MG TABLET PO SCH ×2 (09:00→21:31)
[2020-11-13] MEDS: ASPIRIN 81MG EC TABLET PO SCH (09:00)
[2020-11-13] MEDS ORDERED: IOHEXOL-350 100 ML BOTTLE ONE (10:44)
[2020-11-13 12:00] VITALS: BP 120/52
[2020-11-13] MEDS ORDERED: SODIUM POLYSTYRENE SULFONATE 15 G/60 ML BOT PO SCH (13:00)
[2020-11-13] MEDS ORDERED: VANCOMYCIN 750 MG PREMIX 150 ML IV NR (17:00)
[2020-11-13 20:00] VITALS: BP 153/66
[2020-11-13] MEDS: GABAPENTIN 300MG CAPSULE PO SCH (21:31)
[2020-11-13] MEDS: ATORVASTATIN CALCIUM 10MG TABLET PO SCH (21:31)
[2020-11-13] MEDS: FAMOTIDINE 20MG TABLET PO SCH (21:31)
[2020-11-14] VITALS: BP 174/74
[2020-11-14] MEDS: CLONIDINE 0.1MG TABLET PO SCH ×4 (00:32→17:59)
[2020-11-14 04:00] VITALS: BP 165/63
[2020-11-14 05:12] LABS: BASOPHILS % 1.8 % (0.0-2.0); HEMATOCRIT. 33.9 % (42.0-52.0); HEMOGLOBIN. 11.1 g/dL (14.0-18.0); LYMPHOCYTES % 21.4 % (20.0-50.0); MEAN CORPUSCULAR HEMOGLOBIN 28.1 pg (28.0-32.0); MEAN CORPUSCULAR VOLUME 86.1 fL (80.0-94.0); MEAN PLATELET VOLUME 10.2 fl (7.4-10.4); MONOCYTES % 8.3 % (2.0-8.0); NEUTROPHILS % 63.5 % (40.0-76.0); PLATELET 152 x1000/uL (130-400); RED BLOOD CELL COUNT 3.93 mill/uL (4.7-6.1)
[2020-11-14 05:25] LABS: PHOSPHORUS 7.4 mg/dL (2.5-4.9)
[2020-11-14] MEDS: NIFEDIPINE XL 60MG TAB PO SCH ×2 (05:59→17:59)
[2020-11-14] MEDS: LEVOTHYROXINE SODIUM 100MCG TABLET PO SCH (05:59)
[2020-11-14] MEDS: BLOOD SUGAR DIAGNOSTIC STRIP TEST SCH ×4 (05:59→21:35)
[2020-11-14] MEDS: ACETAMINOPHEN 325MG TABLET PO PRN ×2 (06:20→21:31)
[2020-11-14] MEDS: CALCIUM ACETATE 667MG CAPSULE PO SCH ×3 (06:20→17:59)
[2020-11-14] MEDS: INSULIN LISPRO 100 UNITS/ML SUBCUT SCH ×4 (06:21→21:34)
[2020-11-14] MEDS ORDERED: HEPARIN SODIUM 1,000 UNIT/1ML VIAL IV ONE (07:54)
[2020-11-14] MEDS: HEPARIN 5000 UNITS/ML VIAL SUBCUT SCH ×2 (09:00→21:31)
[2020-11-14] MEDS: ASPIRIN 81MG EC TABLET PO SCH (09:00)
[2020-11-14] MEDS: FOLIC ACID/VITAMIN B COMP W-C TABLET PO SCH (09:12)
[2020-11-14] MEDS: LOSARTAN POTASSIUM 25 MG TABLET PO SCH (09:12)
[2020-11-14] MEDS: METOPROLOL TARTRATE 50MG TABLET PO SCH ×2 (09:12→21:00)
[2020-11-14 12:00] VITALS: BP 198/83
[2020-11-14] MEDS: HYDRALAZINE 20MG/ML VIAL IV PRN (12:49)
[2020-11-14] MEDS ORDERED: MIDAZOLAM HCL 5 MG/5 ML VIAL ONE (13:24)
[2020-11-14] MEDS ORDERED: IOHEXOL-300 100 ML BOTTLE ONE (13:25)
[2020-11-14] MEDS ORDERED: LIDOCAINE HCL 1% 20ML VIAL (Pyxis) INJ ONE (13:25)
[2020-11-14] MEDS ORDERED: IODIXANOL 320MG/ML 100 ML BOTTLE IV ONE (13:25)
[2020-11-14] MEDS ORDERED: FENTANYL CITRATE/PF 50MCG/ML 5ML VIAL ONE (13:27)
[2020-11-14] MEDS ORDERED: DIPHENHYDRAMINE 50MG/ML VIAL ONE (13:45)
[2020-11-14] MEDS ORDERED: FENTANYL CITRATE/PF 50MCG/ML 2ML VIAL ONE (15:13)
[2020-11-14] MEDS ORDERED: MIDAZOLAM HCL 2 MG/2 ML VIAL ONE (15:13)
[2020-11-14] MEDS: CEFTRIAXONE 1,000 MG in DEXTROSE 5% WATER 50 ML IV SCH (15:41)
[2020-11-14 16:00] VITALS: BP 174/76
[2020-11-14 20:00] VITALS: BP 102/50
[2020-11-14] MEDS: GABAPENTIN 300MG CAPSULE PO SCH (21:31)
[2020-11-14] MEDS: FAMOTIDINE 20MG TABLET PO SCH (21:31)
[2020-11-14] MEDS: ATORVASTATIN CALCIUM 10MG TABLET PO SCH (21:31)
[2020-11-15] VITALS: BP 116/55
[2020-11-15 04:00] VITALS: BP 128/56
[2020-11-15] MEDS: NIFEDIPINE XL 60MG TAB PO SCH ×2 (06:00→17:09)
[2020-11-15] MEDS ORDERED: LIDOCAINE HCL 1% 20ML VIAL (Pyxis) INJ INFIL SCH (06:00)
[2020-11-15] MEDS ORDERED: LIDOCAINE HCL 2% JELLY 5ML TOP SCH (06:00)
[2020-11-15 06:37] LABS: BASOPHILS % 1.9 % (0.0-2.0); EOSINOPHILS % 5.3 % (0.0-5.0); HEMATOCRIT. 33.4 % (42.0-52.0); LYMPHOCYTES % 24.9 % (20.0-50.0); MEAN CORPUSCULAR HEMOGLOBIN 28.1 pg (28.0-32.0); MEAN CORPUSCULAR VOLUME 85.2 fL (80.0-94.0); MEAN PLATELET VOLUME 10.4 fl (7.4-10.4); MONOCYTES % 7.1 % (2.0-8.0); NEUTROPHILS % 60.8 % (40.0-76.0); PLATELET 163 x1000/uL (130-400); RED BLOOD CELL COUNT 3.92 mill/uL (4.7-6.1); RED CELL DISTRIBUTION WIDTH 17.3 % (11.6-14.6)
[2020-11-15] MEDS: LEVOTHYROXINE SODIUM 100MCG TABLET PO SCH (06:40)
[2020-11-15] MEDS: CALCIUM ACETATE 667MG CAPSULE PO SCH ×3 (06:40→17:08)
[2020-11-15] MEDS: ACETAMINOPHEN 325MG TABLET PO PRN ×3 (06:40→21:20)
[2020-11-15] MEDS: CLONIDINE 0.1MG TABLET PO SCH ×4 (06:40→17:08)
[2020-11-15] MEDS: INSULIN LISPRO 100 UNITS/ML SUBCUT SCH ×4 (06:41→21:00)
[2020-11-15] MEDS: BLOOD SUGAR DIAGNOSTIC STRIP TEST SCH ×4 (06:41→21:09)
[2020-11-15 07:29] LABS: PHOSPHORUS 8.4 mg/dL (2.5-4.9)
[2020-11-15 08:00] VITALS: BP 122/55
[2020-11-15] MEDS: LOSARTAN POTASSIUM 25 MG TABLET PO SCH (09:00)
[2020-11-15] MEDS: HEPARIN 5000 UNITS/ML VIAL SUBCUT SCH ×2 (09:00→21:22)
[2020-11-15] MEDS: METOPROLOL TARTRATE 50MG TABLET PO SCH ×2 (09:00→21:21)
[2020-11-15 12:00] VITALS: BP 159/103
[2020-11-15] MEDS: FOLIC ACID/VITAMIN B COMP W-C TABLET PO SCH (12:50)
[2020-11-15] MEDS: ASPIRIN 81MG EC TABLET PO SCH (12:50)
[2020-11-15 16:00] VITALS: BP 180/75
[2020-11-15 20:00] VITALS: BP 201/86
[2020-11-15] MEDS: HYDRALAZINE 20MG/ML VIAL IV PRN (20:31)
[2020-11-15] MEDS: ATORVASTATIN CALCIUM 10MG TABLET PO SCH (21:21)
[2020-11-15] MEDS: GABAPENTIN 300MG CAPSULE PO SCH (21:21)
[2020-11-15] MEDS: FAMOTIDINE 20MG TABLET PO SCH (21:21)
[2020-11-16] VITALS: BP 193/85
[2020-11-16] MEDS: CLONIDINE 0.1MG TABLET PO SCH ×2 (00:38→05:56)
[2020-11-16] MEDS: HYDRALAZINE 20MG/ML VIAL IV PRN (03:53)
[2020-11-16 04:00] VITALS: BP 181/76
[2020-11-16] MEDS: NIFEDIPINE XL 60MG TAB PO SCH ×2 (05:55→17:14)
[2020-11-16] MEDS: LEVOTHYROXINE SODIUM 100MCG TABLET PO SCH (05:55)
[2020-11-16] MEDS: ACETAMINOPHEN 325MG TABLET PO PRN (06:03)
[2020-11-16] MEDS: INSULIN LISPRO 100 UNITS/ML SUBCUT SCH ×4 (06:23→21:31)
[2020-11-16] MEDS: BLOOD SUGAR DIAGNOSTIC STRIP TEST SCH ×4 (06:24→20:46)
[2020-11-16 08:00] VITALS: BP 127/58
[2020-11-16] MEDS: CALCIUM ACETATE 667MG CAPSULE PO SCH ×3 (09:47→17:13)
[2020-11-16] MEDS: ASPIRIN 81MG EC TABLET PO SCH (09:48)
[2020-11-16] MEDS: LOSARTAN POTASSIUM 25 MG TABLET PO SCH (09:48)
[2020-11-16] MEDS: HEPARIN 5000 UNITS/ML VIAL SUBCUT SCH ×2 (09:48→20:33)
[2020-11-16] MEDS: METOPROLOL TARTRATE 50MG TABLET PO SCH ×2 (09:48→20:34)
[2020-11-16] MEDS: FOLIC ACID/VITAMIN B COMP W-C TABLET PO SCH (09:48)
[2020-11-16 12:00] VITALS: BP 138/64
[2020-11-16] MEDS ORDERED: CLONIDINE 0.2MG TABLET PO SCH (12:00)
[2020-11-16 15:36] LABS: BASOPHILS % 2.2 % (0.0-2.0); EOSINOPHILS % 6.4 % (0.0-5.0); HEMATOCRIT. 34.1 % (42.0-52.0); HEMOGLOBIN. 11.5 g/dL (14.0-18.0); LYMPHOCYTES % 23.5 % (20.0-50.0); MEAN CORPUSCULAR VOLUME 85.9 fL (80.0-94.0); MEAN PLATELET VOLUME 9.8 fl (7.4-10.4); MONOCYTES % 8.6 % (2.0-8.0); NEUTROPHILS % 59.3 % (40.0-76.0); PLATELET 162 x1000/uL (130-400); RED BLOOD CELL COUNT 3.97 mill/uL (4.7-6.1); RED CELL DISTRIBUTION WIDTH 17.2 % (11.6-14.6)
[2020-11-16 15:46] LABS: PHOSPHORUS 7.2 mg/dL (2.5-4.9)
[2020-11-16 16:00] VITALS: BP 122/56
[2020-11-16 16:08] LABS: HEPATITIS B SURFACE ANTIGEN NEGATIVE
[2020-11-16 16:38] LABS: HEPATITIS A AB IGM NEGATIVE (NEGATIVE)
[2020-11-16] MEDS: LEVOFLOXACIN 250MG TABLET PO SCH (18:11)
[2020-11-16 20:00] VITALS: BP 117/56
[2020-11-16] MEDS: FAMOTIDINE 20MG TABLET PO SCH (20:32)
[2020-11-16] MEDS: ATORVASTATIN CALCIUM 10MG TABLET PO SCH (20:32)
[2020-11-16] MEDS: GABAPENTIN 300MG CAPSULE PO SCH (20:32)
[2020-11-16] MEDS: HYDRALAZINE HCL 50MG TABLET PO SCH (21:30)
[2020-11-17] VITALS: BP 130/58
[2020-11-17 04:00] VITALS: BP 149/64
[2020-11-17] MEDS: HYDRALAZINE HCL 50MG TABLET PO SCH ×3 (06:00→21:23)
[2020-11-17] MEDS: NIFEDIPINE XL 60MG TAB PO SCH ×2 (06:00→17:06)
[2020-11-17 06:20] LABS: BASOPHILS % 1.2 % (0.0-2.0); EOSINOPHILS % 6.9 % (0.0-5.0); HEMATOCRIT. 33.4 % (42.0-52.0); HEMOGLOBIN. 10.8 g/dL (14.0-18.0); LYMPHOCYTES % 25.5 % (20.0-50.0); MEAN CORPUSCULAR VOLUME 86.2 fL (80.0-94.0); MEAN PLATELET VOLUME 10.4 fl (7.4-10.4); MONOCYTES % 8.1 % (2.0-8.0); NEUTROPHILS % 58.3 % (40.0-76.0); PLATELET 146 x1000/uL (130-400); RED BLOOD CELL COUNT 3.87 mill/uL (4.7-6.1); RED CELL DISTRIBUTION WIDTH 17.4 % (11.6-14.6)
[2020-11-17] MEDS: INSULIN LISPRO 100 UNITS/ML SUBCUT SCH ×4 (06:22→21:23)
[2020-11-17] MEDS: BLOOD SUGAR DIAGNOSTIC STRIP TEST SCH ×4 (06:22→21:23)
[2020-11-17] MEDS: LEVOTHYROXINE SODIUM 100MCG TABLET PO SCH (06:22)
[2020-11-17 06:40] LABS: PHOSPHORUS 7.9 mg/dL (2.5-4.9)
[2020-11-17 08:00] VITALS: BP 189/72
[2020-11-17] MEDS: FOLIC ACID/VITAMIN B COMP W-C TABLET PO SCH (08:07)
[2020-11-17] MEDS: METOPROLOL TARTRATE 50MG TABLET PO SCH ×2 (08:08→21:00)
[2020-11-17] MEDS: LOSARTAN POTASSIUM 25 MG TABLET PO SCH (08:08)
[2020-11-17] MEDS: CALCIUM ACETATE 667MG CAPSULE PO SCH ×3 (08:08→17:03)
[2020-11-17] MEDS: HEPARIN 5000 UNITS/ML VIAL SUBCUT SCH ×2 (08:08→21:25)
[2020-11-17] MEDS: ASPIRIN 81MG EC TABLET PO SCH (08:10)
[2020-11-17 12:00] VITALS: BP 152/65
[2020-11-17 16:00] VITALS: BP 190/90
[2020-11-17 20:30] VITALS: BP 204/87
[2020-11-17] MEDS: FAMOTIDINE 20MG TABLET PO SCH (21:23)
[2020-11-17] MEDS: GABAPENTIN 300MG CAPSULE PO SCH (21:23)
[2020-11-17] MEDS: ATORVASTATIN CALCIUM 10MG TABLET PO SCH (21:24)
[2020-11-18] VITALS (7 sets, daily range): BP systolic 128–212; BP diastolic 57–95
[2020-11-18] MEDS: NIFEDIPINE XL 60MG TAB PO SCH ×3 (06:04→17:47)
[2020-11-18] MEDS: HYDRALAZINE HCL 50MG TABLET PO SCH (06:04)
[2020-11-18] MEDS: LEVOTHYROXINE SODIUM 100MCG TABLET PO SCH (06:04)
[2020-11-18] MEDS: INSULIN LISPRO 100 UNITS/ML SUBCUT SCH ×4 (06:46→21:00)
[2020-11-18] MEDS: BLOOD SUGAR DIAGNOSTIC STRIP TEST SCH ×4 (06:46→20:59)
[2020-11-18 08:47] LABS: BASOPHILS % 1.3 % (0.0-2.0); EOSINOPHILS % 6.5 % (0.0-5.0); HEMATOCRIT. 33.4 % (42.0-52.0); HEMOGLOBIN. 11.4 g/dL (14.0-18.0); LYMPHOCYTES % 24.7 % (20.0-50.0); MEAN CORPUSCULAR HEMOGLOBIN 29.2 pg (28.0-32.0); MEAN CORPUSCULAR VOLUME 85.6 fL (80.0-94.0); MEAN PLATELET VOLUME 10.2 fl (7.4-10.4); MONOCYTES % 9.2 % (2.0-8.0); NEUTROPHILS % 58.3 % (40.0-76.0); PLATELET 149 x1000/uL (130-400); RED BLOOD CELL COUNT 3.91 mill/uL (4.7-6.1); RED CELL DISTRIBUTION WIDTH 16.8 % (11.6-14.6)
[2020-11-18 08:50] LABS: PHOSPHORUS 4.8 mg/dL (2.5-4.9)
[2020-11-18] MEDS: FOLIC ACID/VITAMIN B COMP W-C TABLET PO SCH (09:33)
[2020-11-18] MEDS: ASPIRIN 81MG EC TABLET PO SCH (09:34)
[2020-11-18] MEDS: CALCIUM ACETATE 667MG CAPSULE PO SCH ×3 (09:34→17:30)
[2020-11-18] MEDS: METOPROLOL TARTRATE 50MG TABLET PO SCH ×2 (09:34→20:59)
[2020-11-18] MEDS: LOSARTAN POTASSIUM 25 MG TABLET PO SCH (09:34)
[2020-11-18] MEDS: ACETAMINOPHEN 325MG TABLET PO PRN (09:35)
[2020-11-18] MEDS: HEPARIN 5000 UNITS/ML VIAL SUBCUT SCH ×2 (09:36→20:59)
[2020-11-18] MEDS: HYDRALAZINE 20MG/ML VIAL IV PRN (12:46)
[2020-11-18] MEDS: LEVOFLOXACIN 250MG TABLET PO SCH (17:30)
[2020-11-18] MEDS: ATORVASTATIN CALCIUM 10MG TABLET PO SCH (20:58)
[2020-11-18] MEDS: GABAPENTIN 300MG CAPSULE PO SCH (20:58)
[2020-11-18] MEDS: FAMOTIDINE 20MG TABLET PO SCH (20:58)
[2020-11-18] MEDS: MINOXIDIL 2.5MG TABLET PO SCH (20:58)
[2020-11-19] VITALS: BP 142/61
[2020-11-19 05:00] VITALS: BP 163/73
[2020-11-19 05:45] LABS: PHOSPHORUS 6.8 mg/dL (2.5-4.9)
[2020-11-19] MEDS: BLOOD SUGAR DIAGNOSTIC STRIP TEST SCH ×4 (06:21→21:25)
[2020-11-19] MEDS: INSULIN LISPRO 100 UNITS/ML SUBCUT SCH ×4 (06:21→21:00)
[2020-11-19] MEDS: LEVOTHYROXINE SODIUM 100MCG TABLET PO SCH (06:21)
[2020-11-19 06:35] LABS: BASOPHILS % 1.2 % (0.0-2.0); EOSINOPHILS % 7.1 % (0.0-5.0); HEMATOCRIT. 35.4 % (42.0-52.0); HEMOGLOBIN. 11.6 g/dL (14.0-18.0); LYMPHOCYTES % 29.4 % (20.0-50.0); MEAN CORPUSCULAR HEMOGLOBIN 27.9 pg (28.0-32.0); MEAN CORPUSCULAR VOLUME 84.9 fL (80.0-94.0); MEAN PLATELET VOLUME 10.4 fl (7.4-10.4); MONOCYTES % 9.5 % (2.0-8.0); NEUTROPHILS % 52.8 % (40.0-76.0); PLATELET 185 x1000/uL (130-400); RED BLOOD CELL COUNT 4.17 mill/uL (4.7-6.1); RED CELL DISTRIBUTION WIDTH 16.9 % (11.6-14.6)
[2020-11-19 08:00] VITALS: BP 189/81
[2020-11-19] MEDS: FOLIC ACID/VITAMIN B COMP W-C TABLET PO SCH (09:18)
[2020-11-19] MEDS: CALCIUM ACETATE 667MG CAPSULE PO SCH ×3 (09:19→16:23)
[2020-11-19] MEDS: LOSARTAN POTASSIUM 25 MG TABLET PO SCH (09:19)
[2020-11-19] MEDS: HEPARIN 5000 UNITS/ML VIAL SUBCUT SCH ×2 (09:19→21:23)
[2020-11-19] MEDS: ASPIRIN 81MG EC TABLET PO SCH (09:19)
[2020-11-19] MEDS: METOPROLOL TARTRATE 50MG TABLET PO SCH ×2 (09:25→21:25)
[2020-11-19] MEDS: MINOXIDIL 2.5MG TABLET PO SCH ×2 (09:25→21:24)
[2020-11-19 12:00] VITALS: BP 199/83
[2020-11-19 16:00] VITALS: BP 222/95
[2020-11-19] MEDS: LOSARTAN POTASSIUM 50 MG TABLET PO SCH (16:23)
[2020-11-19] MEDS: NIFEDIPINE XL 60MG TAB PO SCH (17:18)
[2020-11-19] MEDS: CLONIDINE 0.2MG TABLET PO PRN (19:46)
[2020-11-19 20:00] VITALS: BP 175/72
[2020-11-19] MEDS: GABAPENTIN 300MG CAPSULE PO SCH (21:25)
[2020-11-19] MEDS: ATORVASTATIN CALCIUM 10MG TABLET PO SCH (21:25)
[2020-11-19] MEDS: FAMOTIDINE 20MG TABLET PO SCH (21:25)
[2020-11-20] VITALS: BP 137/83
[2020-11-20 04:00] VITALS: BP 116/50
[2020-11-20] MEDS: NIFEDIPINE XL 60MG TAB PO SCH (06:00)
[2020-11-20] MEDS: LEVOTHYROXINE SODIUM 100MCG TABLET PO SCH (06:18)
[2020-11-20] MEDS: CALCIUM ACETATE 667MG CAPSULE PO SCH ×3 (06:18→17:14)
[2020-11-20] MEDS: BLOOD SUGAR DIAGNOSTIC STRIP TEST SCH ×4 (06:18→21:30)
[2020-11-20 06:19] LABS: BASOPHILS % 1.9 % (0.0-2.0); EOSINOPHILS % 6.7 % (0.0-5.0); HEMATOCRIT. 34.4 % (42.0-52.0); HEMOGLOBIN. 11.3 g/dL (14.0-18.0); LYMPHOCYTES % 33.2 % (20.0-50.0); MEAN CORPUSCULAR HEMOGLOBIN 28.1 pg (28.0-32.0); MEAN CORPUSCULAR VOLUME 85.9 fL (80.0-94.0); MEAN PLATELET VOLUME 10.1 fl (7.4-10.4); NEUTROPHILS % 48.2 % (40.0-76.0); PLATELET 193 x1000/uL (130-400); RED BLOOD CELL COUNT 4.01 mill/uL (4.7-6.1); RED CELL DISTRIBUTION WIDTH 16.7 % (11.6-14.6)
[2020-11-20] MEDS: INSULIN LISPRO 100 UNITS/ML SUBCUT SCH ×4 (06:19→21:00)
[2020-11-20 06:20] LABS: PHOSPHORUS 7.1 mg/dL (2.5-4.9)
[2020-11-20 08:00] VITALS: BP 136/65
[2020-11-20] MEDS: FOLIC ACID/VITAMIN B COMP W-C TABLET PO SCH (10:47)
[2020-11-20] MEDS: HEPARIN 5000 UNITS/ML VIAL SUBCUT SCH ×2 (10:47→21:32)
[2020-11-20] MEDS: ASPIRIN 81MG EC TABLET PO SCH (10:48)
[2020-11-20] MEDS: MINOXIDIL 2.5MG TABLET PO SCH ×2 (10:48→20:11)
[2020-11-20] MEDS: LOSARTAN POTASSIUM 50 MG TABLET PO SCH ×2 (10:48→17:14)
[2020-11-20] MEDS: INSULIN GLARGINE UD 100 UNITS/ML SYR SUBCUT SCH (10:50)
[2020-11-20] MEDS: METOPROLOL TARTRATE 50MG TABLET PO SCH ×2 (10:59→20:12)
[2020-11-20 12:00] VITALS: BP 144/63
[2020-11-20 16:00] VITALS: BP 184/77
[2020-11-20] MEDS: LEVOFLOXACIN 250MG TABLET PO SCH (17:14)
[2020-11-20 20:00] VITALS: BP 200/78
[2020-11-20] MEDS: ATORVASTATIN CALCIUM 10MG TABLET PO SCH (20:11)
[2020-11-20] MEDS: GABAPENTIN 300MG CAPSULE PO SCH (20:12)
[2020-11-20] MEDS: FAMOTIDINE 20MG TABLET PO SCH (20:12)
[2020-11-20] MEDS ORDERED: NIFEDIPINE XL 60MG TAB PO SCH (21:00)
[2020-11-20] MEDS: CLONIDINE 0.2MG TABLET PO PRN (23:32)
[2020-11-21] VITALS (8 sets, daily range): BP systolic 113–185; BP diastolic 50–75
[2020-11-21] MEDS: ACETAMINOPHEN 325MG TABLET PO PRN (04:03)
[2020-11-21] MEDS: LEVOTHYROXINE SODIUM 100MCG TABLET PO SCH (06:20)
[2020-11-21] MEDS: INSULIN LISPRO 100 UNITS/ML SUBCUT SCH ×4 (06:22→21:00)
[2020-11-21] MEDS: BLOOD SUGAR DIAGNOSTIC STRIP TEST SCH ×4 (06:23→21:09)
[2020-11-21 06:45] LABS: BASOPHILS % 2.3 % (0.0-2.0); EOSINOPHILS % 7.5 % (0.0-5.0); HEMATOCRIT. 31.2 % (42.0-52.0); HEMOGLOBIN. 10.1 g/dL (14.0-18.0); LYMPHOCYTES % 29.6 % (20.0-50.0); MEAN CORPUSCULAR HEMOGLOBIN 28.2 pg (28.0-32.0); MEAN CORPUSCULAR VOLUME 87.2 fL (80.0-94.0); MEAN PLATELET VOLUME 10.3 fl (7.4-10.4); MONOCYTES % 9.7 % (2.0-8.0); NEUTROPHILS % 50.9 % (40.0-76.0); PLATELET 174 x1000/uL (130-400); RED BLOOD CELL COUNT 3.58 mill/uL (4.7-6.1); RED CELL DISTRIBUTION WIDTH 16.5 % (11.6-14.6)
[2020-11-21 08:08] LABS: HAV IGM ANTIBODY Negative (Negative); HBSAG SCREEN Negative (Negative); HEPATITIS B CORE IGM AB Negative (Negative); HEPATITIS C AB 0.1 s/co ratio (0.0-0.9)
[2020-11-21] MEDS: METOPROLOL TARTRATE 50MG TABLET PO SCH ×2 (09:00→21:02)
[2020-11-21 09:05] LABS: CREATINE KINASE 49 IU/L (39-308)
[2020-11-21] MEDS: CALCIUM ACETATE 667MG CAPSULE PO SCH ×3 (10:01→20:30)
[2020-11-21] MEDS: HEPARIN 5000 UNITS/ML VIAL SUBCUT SCH ×2 (10:02→21:00)
[2020-11-21] MEDS: ASPIRIN 81MG EC TABLET PO SCH (10:02)
[2020-11-21] MEDS: MINOXIDIL 2.5MG TABLET PO SCH ×2 (10:03→21:02)
[2020-11-21] MEDS: LOSARTAN POTASSIUM 50 MG TABLET PO SCH ×2 (10:03→17:17)
[2020-11-21] MEDS: NIFEDIPINE XL 60MG TAB PO SCH ×2 (10:07→17:52)
[2020-11-21] MEDS: INSULIN GLARGINE UD 100 UNITS/ML SYR SUBCUT SCH (10:15)
[2020-11-21] MEDS: FOLIC ACID/VITAMIN B COMP W-C TABLET PO SCH (10:36)
[2020-11-21] MEDS ORDERED: DEXTROSE 50% WATER 50ML SYRINGE IV NR (10:45)
[2020-11-21] MEDS ORDERED: SODIUM POLYSTYRENE SULFONATE 15 G/60 ML BOT PO NR ×2 (10:45→17:30)
[2020-11-21] MEDS ORDERED: SODIUM BICARBONATE 8.4% 1 MEQ/ML 50ML SYR IV NR (10:45)
[2020-11-21] MEDS ORDERED: INSULIN REGULAR (HUMULIN R) UD 100 UNITS/ML SYR IV NR (11:00)
[2020-11-21] MEDS ORDERED: CALCIUM CHLORIDE 1GM/10ML SYR IV NR (11:30)
[2020-11-21] MEDS: GABAPENTIN 300MG CAPSULE PO SCH (21:02)
[2020-11-21] MEDS: FAMOTIDINE 20MG TABLET PO SCH (21:02)
[2020-11-21] MEDS: ATORVASTATIN CALCIUM 10MG TABLET PO SCH (21:02)
== END 2020-11-21 21:28 | disposition home health service (06) | DRG 252 ==
LOC: ER 15:49 → 5WST 17:45 → EDBEDREQSVC 18:06 → EDBEDREQ 18:06 → ENRESERV 21:36
PROVIDERS: ADMIT Internal Medicine; ATTEND Internal Medicine
PROC: 5A1D70Z Performance of Urinary Filtration, Intermittent, Less than 6 Hours Per Day (ICD-10-PCS; 2020-11-09)
PROC: 5A1D70Z Performance of Urinary Filtration, Intermittent, Less than 6 Hours Per Day (ICD-10-PCS; 2020-11-10)
PROC: 5A1D70Z Performance of Urinary Filtration, Intermittent, Less than 6 Hours Per Day (ICD-10-PCS; 2020-11-13)
PROC: 047K3ZZ Dilation of Right Femoral Artery, Percutaneous Approach (ICD-10-PCS; principal; 2020-11-14)
PROC: 047T3ZZ Dilation of Right Peroneal Artery, Percutaneous Approach (ICD-10-PCS; 2020-11-14)
PROC: 047M3ZZ Dilation of Right Popliteal Artery, Percutaneous Approach (ICD-10-PCS; 2020-11-14)
PROC: 047R3ZZ Dilation of Right Posterior Tibial Artery, Percutaneous Approach (ICD-10-PCS; 2020-11-14)
PROC: B41F1ZZ Fluoroscopy of Right Lower Extremity Arteries using Low Osmolar Contrast (ICD-10-PCS; 2020-11-14)
PROC: 0HBMXZZ Excision of Right Foot Skin, External Approach (ICD-10-PCS; 2020-11-15)
PROC: 5A1D70Z Performance of Urinary Filtration, Intermittent, Less than 6 Hours Per Day (ICD-10-PCS; 2020-11-15)
PROC: 5A1D70Z Performance of Urinary Filtration, Intermittent, Less than 6 Hours Per Day (ICD-10-PCS; 2020-11-17)
PROC: 5A1D70Z Performance of Urinary Filtration, Intermittent, Less than 6 Hours Per Day (ICD-10-PCS; 2020-11-20)
PROC: 5A1D70Z Performance of Urinary Filtration, Intermittent, Less than 6 Hours Per Day (ICD-10-PCS; 2020-11-21)
DX: E11.51 Type 2 diabetes mellitus with diabetic peripheral angiopathy without gangrene (principal); N18.6 End stage renal disease; L03.116 Cellulitis of left lower limb; I13.2 Hypertensive heart and chronic kidney disease with heart failure and with stage 5 chronic kidney disease, or end stage renal disease; E87.1 Hypo-osmolality and hyponatremia; M86.10 Other acute osteomyelitis, unspecified site; M86.60 Other chronic osteomyelitis, unspecified site; I25.10 Atherosclerotic heart disease of native coronary artery without angina pectoris; E11.610 Type 2 diabetes mellitus with diabetic neuropathic arthropathy; E11.69 Type 2 diabetes mellitus with other specified complication; E03.9 Hypothyroidism, unspecified; E11.40 Type 2 diabetes mellitus with diabetic neuropathy, unspecified; D64.9 Anemia, unspecified; E66.9 Obesity, unspecified; E83.39 Other disorders of phosphorus metabolism; E11.22 Type 2 diabetes mellitus with diabetic chronic kidney disease; I50.9 Heart failure, unspecified; E78.5 Hyperlipidemia, unspecified; K21.9 Gastro-esophageal reflux disease without esophagitis; Z20.822 Contact with and (suspected) exposure to COVID-19; E87.5 Hyperkalemia; L97.519 Non-pressure chronic ulcer of other part of right foot with unspecified severity; L97.529 Non-pressure chronic ulcer of other part of left foot with unspecified severity; Z99.2 Dependence on renal dialysis; Z79.4 Long term (current) use of insulin; Z82.49 Family history of ischemic heart disease and other diseases of the circulatory system; Z86.14 Personal history of Methicillin resistant Staphylococcus aureus infection; Z87.01 Personal history of pneumonia (recurrent); Z89.411 Acquired absence of right great toe; Z91.013 Allergy to seafood; Z79.899 Other long term (current) drug therapy; Z79.82 Long term (current) use of aspirin; Z68.31 Body mass index [BMI] 31.0-31.9, adult; I70.203 Unspecified atherosclerosis of native arteries of extremities, bilateral legs
CPT/HCPCS: 36415; 37224; 37228; 71045; 73700; 73718; 75635; 75710; 76881; 80048; 80053; 80074; 80202; 82550; 82962; 83036; 83605; 83735; 84100; 84132; 84145; 85025; 86705; 86709; 86803; 86850; 86900; 87340; 87426; 93005; 93923; 93971; 97162; 97166; 99285; C1725; C1760; C1769; C1887; C1893; C1894; J0360; J0696; J1200; J1644; J1815; J2250; J3010; J3370; J3490; J7030; J7040; J7042; J7060; Q9967

== ENCOUNTER 2020-12-13 12:44 | Emergency (ER) | payer MEDICARE, MEDICAID ==
[~2020-12-13] VITALS: Ht 167.6 cm; Wt 81.0 kg
[~2020-12-13 12:44] MED LIST changes: -INSNPH SUBCUT; -PREG75CA PO
[2020-12-13 14:34] LABS: BASOPHILS % 0.8 % (0.0-2.0); EOSINOPHILS % 3.3 % (0.0-5.0); HEMATOCRIT. 33.6 % (42.0-52.0); HEMOGLOBIN. 11.2 g/dL (14.0-18.0); LYMPHOCYTES % 17.8 % (20.0-50.0); MEAN CORPUSCULAR HEMOGLOBIN 29.6 pg (28.0-32.0); MEAN CORPUSCULAR VOLUME 88.6 fL (80.0-94.0); MEAN PLATELET VOLUME 9.8 fl (7.4-10.4); MONOCYTES % 7.8 % (2.0-8.0); NEUTROPHILS % 70.3 % (40.0-76.0); PLATELET 138 x1000/uL (130-400); RED CELL DISTRIBUTION WIDTH 16.9 % (11.6-14.6)
[2020-12-13 14:51] LABS: CHLORIDE 94 mEq/L (98-107)
[2020-12-13] MEDS ORDERED: TOPUD PO (19:18)
[2020-12-13 19:41] VITALS: BP 188/78
== END 2020-12-13 19:42 | disposition home or self-care (01) ==
LOC: ER 12:44
DX: R07.9 Chest pain, unspecified (principal); I12.0 Hypertensive chronic kidney disease with stage 5 chronic kidney disease or end stage renal disease; E11.22 Type 2 diabetes mellitus with diabetic chronic kidney disease; N18.6 End stage renal disease; E07.9 Disorder of thyroid, unspecified; V49.40XA Driver injured in collision with unspecified motor vehicles in traffic accident, initial encounter; Y93.9 Activity, unspecified; Y92.410 Unspecified street and highway as the place of occurrence of the external cause; Z99.2 Dependence on renal dialysis; Z79.82 Long term (current) use of aspirin; Z98.62 Peripheral vascular angioplasty status; Z91.013 Allergy to seafood
CPT/HCPCS: 36415; 71045; 80053; 83880; 84484; 85025; 93005; 99285